=== PATIENT | male | born 1970 | race Caucasian/White ===

== ENCOUNTER 2020-08-14 10:48 | Emergency (ER) | payer OTHER ==
[2020-08-14 11:01] VITALS: TEMP 97.9
[2020-08-14] MEDS ORDERED: HYDROmorphone 1 MG/ML 1 ML SYRINGE IVP STA ×3 (11:23→13:12)
--- NOTE | 2020-08-14 11:30 | ED ---
Fall HPI - General Chief Complaint: Fall Stated Complaint: Fall, L Leg Injury Time Seen by Provider: 08/14/20 11:10 Source: EMS, RN notes reviewed Mode of arrival: EMS - History of Present Illness Initial Comments: patient is a 50-year-old male that presents to emergency department status post fall while trying to get in the shower and hitting his head and landing on his new stump (left leg). He notes that he forgot in the shower he had use the bathroom he tried grabbing a towel rack when it broke off the wall resulting in falling hitting his head and landing on a stump. She did report that he didn't lose consciousness but doesn't remember feels only for a second or minute. He noted that most of the fall landed on his left leg which he recently got a BKA on. He stated that his pain was about a 9 out of 10 constant with no relief even after 50 g of fentanyl in the ambulance. he does take Plavix at home for anticoagulation therapy. He denied any headache chest pain shortness of breath nausea vomiting diarrhea constipation fever fatigue chills decreased range of motion sensation or strength in any extremity. - Related Data Home Medications Medication Instructions Recorded Confirmed Clopidogrel [Plavix] 75 mg PO DAILY 08/14/20 08/14/20 Furosemide [Lasix] 80 mg PO BID 08/14/20 08/14/20 Gabapentin [Neurontin] 300 mg PO TID 08/14/20 08/14/20 Insulin Glargine [Lantus] 18 unit SQ DAILY 08/14/20 08/14/20 Meloxicam [Mobic] 7.5 mg PO DAILY 08/14/20 08/14/20 carvediloL [Coreg] 3.125 mg PO BID 08/14/20 08/14/20 lisinopriL [Zestril] 2.5 mg PO DAILY 08/14/20 08/14/20 metFORMIN HCL 1,000 mg PO DAILY 08/14/20 08/14/20 oxyCODONE HCL [Roxicodone] 5 mg PO Q6H PRN 08/14/20 08/14/20 Previous Rx's Medication Instructions Recorded HYDROcodone/APAP 5-325MG [Edwards 1 tab PO Q6HR PRN 7 Days #28 tab 08/14/20 5-325] Allergies Allergy/AdvReac Type Severity Reaction Status Date / Time No Known Allergies Allergy Verified 08/14/20 11:39 Review of Systems ROS Statement: Those systems with pertinent positive or pertinent negative responses have been documented in the HPI. ROS Other: All systems not noted in ROS Statement are negative. Past Medical History Past Medical History: Heart Failure, COPD, CVA/TIA, Diabetes Mellitus, Hyperten leo, Myocardial Infarction ([place]) History of Any Multi-Drug Resistant Organisms: None Reported Past Surgical History: Coronary Bypass/CABG, Heart Catheterization With Stent, Orthopedic Surgery, Pacemaker Past Psychological History: No Psychological Hx Reported Smoking Status: Current every day smoker Past Alcohol Use History: None Reported Past Drug Use History: None Reported General Exam Limitations: no limitations General appearance: alert, in no apparent distress Head exam: Present: atraumatic, normocephalic, normal inspection Eye exam: Present: normal appearance, PERRL, EOMI. Absent: scleral icterus, conjunctival injection, periorbital swelling ENT exam: Present: normal exam, mucous membranes moist Neck exam: Present: normal inspection. Absent: tenderness, meningismus, lymphadenopathy Respiratory exam: Present: normal lung sounds bilaterally. Absent: respiratory distress, wheezes, rales, rhonchi, stridor Cardiovascular Exam: Present: regular rate, normal rhythm, normal heart sounds. Absent: systolic murmur, diastolic murmur, rubs, gallop, clicks GI/Abdominal exam: Present: soft, normal bowel sounds. Absent: distended, tenderness, guarding, rebound, rigid Extremities exam: Present: normal inspection, full ROM, normal capillary refill, other (left BKA, lonny intact wound intact with no signs or symptoms of infection or dehiscence). Absent: tenderness, pedal edema, joint swelling, calf tenderness Neurological exam: Present: alert, oriented X3, CN II-XII intact Expanded Speech: Present: fluid speech Cranial nerves: EOM's Intact: Normal, Tongue Deviation: Normal, Nystagmus: Normal, Facial Sensation: Normal Cerebellar function: Finger to Nose: Normal Sensory exam: Upper Extremity Light Touch: Normal, Lower Extremity Light Touch: Normal Motor strength exam: RUE: 5, LUE: 5, RLE: 5, LLE: 5 Eye Response: (4) open spontaneously Motor Response: (6) obeys commands Verbal Response: (5) oriented Psychiatric exam: Present: normal affect, normal mood Skin exam: Present: warm, dry, intact, normal color, other (left BKA incision is clean, no signs or symptoms of infection, lonny intact, no dehiscence). Absent: rash Course Vital Signs 08/14/20 08/14/20 10:51 11:01 Temperature 97.9 F Pulse Rate 103 H 102 H Respiratory 18 16 Rate Blood Pressure 142/99 145/84 O2 Sat by Pulse 99 100 Oximetry Medical Decision Making - Medical Decision Making 50-year-old male status post fall with head injury and loss of consciousness and stump pain. Labs,x-ray of left knee and stump, CT of brain without contrast, 1 mg of Dilaudid ordered. Sodium: 124, potassium 5.9, chloride 92, BUN 44 - Lab Data Result diagrams: 08/14/20 11:34 08/14/20 11:34 Lab Results 08/14/20 08/14/20 08/14/20 Range/Units 11:34 11:34 11:34 WBC 6.5 (3.8-10.6) k/uL RBC 4.37 (4.30-5.90) m/uL Hgb 12.9 L (13.0-17.5) gm/dL Hct 36.8 L (39.0-53.0) % MCV 84.2 (80.0-100.0) fL MCH 29.6 (25.0-35.0) pg MCHC 35.2 (31.0-37.0) g/dL RDW 14.9 (11.5-15.5) % Plt Count 208 (150-450) k/uL MPV 8.0 Neutrophils % 61 % Lymphocytes % 23 % Monocytes % 8 % Eosinophils % 6 % Basophils % 1 % Neutrophils # 4.0 (1.3-7.7) k/uL Lymphocytes # 1.5 (1.0-4.8) k/uL Monocytes # 0.5 (0-1.0) k/uL Eosinophils # 0.4 (0-0.7) k/uL Basophils # 0.1 (0-0.2) k/uL PT 10.6 (9.0-12.0) sec INR 1.0 (<1.2) APTT 22.0 (22.0-30.0) sec Sodium 124 L (137-145) mmol/L Potassium 5.9 H (3.5-5.1) mmol/L Chloride 92 L (98-107) mmol/L Carbon Dioxide 24 (22-30) mmol/L Anion Gap 8 mmol/L BUN 44 H (9-20) mg/dL Creatinine 0.96 (0.66-1.25) mg/dL Est GFR (CKD-EPI)AfAm >90 (>60 ml/min/1.73 sqM) Est GFR (CKD-EPI)NonAf >90 (>60 ml/min/1.73 sqM) Glucose 224 H (74-99) mg/dL Calcium 9.2 (8.4-10.2) mg/dL Total Bilirubin 0.8 (0.2-1.3) mg/dL AST 27 (17-59) U/L ALT 15 (4-49) U/L Alkaline Phosphatase 74 (38-126) U/L Total Protein 7.5 (6.3-8.2) g/dL Albumin 4.0 (3.5-5.0) g/dL - Radiology Data Radiology results: report reviewed, image reviewed Brain CT: Nonspecific white matter demyelination, consider chronic small vessel ischemic changes, brain MRI may be of benefit. Possibly remote infarct involving the right cerebral hemisphere. Left knee/stump x-ray: No acute fracture dislocation small amount of fluid in the suprapatellar bursa. Disposition Clinical Impression: Fall, Loss of consciousness, History of left below knee amputation Disposition: HOME SELF-CARE Instructions (If sedation given, give patient instructions): Fall Prevention (ED) Additional Instructions: Please return to the Emergency Department if symptoms worsen or any other concerns. Establish primary care as soon as possible. Labs redrawn in 1 week. Take pain medication as prescribed. Prescriptions: HYDROcodone/APAP 5-325MG [Edwards 5-325] 1 tab PO Q6HR PRN 7 Days #28 tab PRN Reason: Pain Is patient prescribed a controlled substance at d/c from ED?: Yes When asked, does pt state using other controlled substances?: No If prescribed controlled substance>3 days was MAPS reviewed?: Yes If opioid is for acute pain is fill amount 7 days or less?: Yes If Rx opioid, was Start Talking consent form obtained?: Yes Referrals: None,Stated [Primary Care Provider] - 1-2 days Time of Disposition: 13:02
[2020-08-14 11:50] LABS: Basophils # (A) 0.1 k/uL (0-0.2); Basophils % (A) 1 %; Eosinophils # (A) 0.4 k/uL (0-0.7); Eosinophils % (A) 6 %; HCT 36.8 % (39.0-53.0); HGB 12.9 gm/dL (13.0-17.5); Lymphocytes # (A) 1.5 k/uL (1.0-4.8); Lymphocytes % (A) 23 %; MCH 29.6 pg (25.0-35.0); MCHC 35.2 g/dL (31.0-37.0); MCV 84.2 fL (80.0-100.0); Monocytes # (A) 0.5 k/uL (0-1.0); Monocytes % (A) 8 %; Neutrophils % (A) 61 %; Platelet Count 208 k/uL (150-450); RBC 4.37 m/uL (4.30-5.90); RDW 14.9 % (11.5-15.5); WBC 6.5 k/uL (3.8-10.6)
[2020-08-14 12:00] LABS: ALT 15 U/L (4-49); AST 27 U/L (17-59); African American GFR (CKD) >90 (>60 ml/min/1.73 sqM); Alkaline Phosphatase 74 U/L (38-126); Anion Gap 8 mmol/L; Blood Urea Nitrogen 44 mg/dL (9-20); Calcium 9.2 mg/dL (8.4-10.2); Carbon Dioxide 24 mmol/L (22-30); Chloride 92 mmol/L (98-107); Glucose 224 mg/dL (74-99); Non-African American GFR(CKD) >90 (>60 ml/min/1.73 sqM); Sodium 124 mmol/L (137-145); Total Bilirubin 0.8 mg/dL (0.2-1.3); Total Protein 7.5 g/dL (6.3-8.2)
[2020-08-14 12:06] LABS: Prothrombin Time 10.6 sec (9.0-12.0)
--- NOTE | 2020-08-14 12:11 | CT ---
EXAMINATION TYPE: CT brain wo con DATE OF EXAM: 08/14/2020 COMPARISON: None HISTORY: Fall, possibly passed out altered mental status CT DLP: 1084.4 mGycm Automated exposure control for dose reduction was used. Helical imaging through the brain. FINDINGS: There are cerebral vascular calcifications present. There is a wedge-shaped area of low-attenuation i n the right cerebellar hemisphere which could possibly represent some encephalomalacia, axial image # 23. There is periventricular white matter low-attenuation present. Cortical atrophy is likely age-rel ated. There is no hemorrhage or hydrocephalus. Calvarium is intact. Paranasal sinuses and mastoid air cells as visualized are normal. 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 There is some artifact on the exam. IMPRESSION: NONSPECIFIC WHITE MATTER DEMYELINATION, CONSIDER CHRONIC SMALL VESSEL ISCHEMIC CHANGES, BRAIN MRI MAY BE OF BENEFIT. POSSIBLY REMOTE INFARCT INVOLVING THE RIGHT CEREBELLAR HEMISPHERE.
--- NOTE | 2020-08-14 12:11 | XR ---
EXAMINATION TYPE: XR knee complete LT DATE OF EXAM: 08/14/2020 COMPARISON: NONE HISTORY: Pain TECHNIQUE: Three views are submitted. FINDINGS: Joint spaces are preserved. Osseous structures are intact. No acute fracture seen. Vascular stent is noted. Mild narrowing medial compartment knee joint. There are surgical lonny and clips and part ial amputation of the tibia and fibula. Small amount of fluid in the suprapatellar bursa. Spurring al aguila the upper margin of the patella. IMPRESSION: 1. No acute fracture or dislocation. 2. Small amount of fluid in the suprapatellar bursa
[2020-08-14 12:15] LABS: Potassium 5.9 mmol/L (3.5-5.1)
[2020-08-14] MEDS ORDERED: SODIUM CHLORIDE 0.9% 1,000 ML IV STA (12:17)
[2020-08-14 13:28] VITALS: BP 136/89; PULSE 87; RESP 18
== END 2020-08-14 13:27 | disposition home or self-care (01) ==
LOC: EC 10:48
DX: R55 Syncope and collapse (principal); Z89.512 Acquired absence of left leg below knee; I11.0 Hypertensive heart disease with heart failure; I50.9 Heart failure, unspecified; E11.9 Type 2 diabetes mellitus without complications; F17.200 Nicotine dependence, unspecified, uncomplicated; J44.9 Chronic obstructive pulmonary disease, unspecified; I25.2 Old myocardial infarction; Z79.02 Long term (current) use of antithrombotics/antiplatelets; Z79.1 Long term (current) use of non-steroidal anti-inflammatories (NSAID); Z79.4 Long term (current) use of insulin; Z79.899 Other long term (current) drug therapy; Z86.73 Personal history of transient ischemic attack (TIA), and cerebral infarction without residual deficits; W22.01XA Walked into wall, initial encounter
CPT/HCPCS: 36415; 80053; 85025; 85610; 85730; 73562; 70450; 99284; 96374; 96376; 96361; J1170

== ENCOUNTER 2021-02-21 17:46 | Inpatient (IN) | payer OTHER ==
[2021-02-21] MEDS ORDERED: VERAPAMIL 2.5 MG/ML 2 ML AMP ONE (18:04)
[2021-02-21] MEDS ORDERED: LIDOCAINE 1% INJ 10MG/ML (20 ML MDV) ONE (18:05)
[2021-02-21] MEDS ORDERED: HEPARIN SODIUM 1,000 UN/ML (10ML VL) ONE (18:05)
[2021-02-21] MEDS ORDERED: fentaNYL (PF) 50 MCG/ML 2 ML AMP ONE (18:05)
[2021-02-21] MEDS ORDERED: IV FLUID CONTINUATION 950 ML IV ONE (18:48)
[2021-02-21] MEDS ORDERED: NITROGLYCERIN D5W PMX IV ONE ×2 (18:48)
[2021-02-21] MEDS ORDERED: FLUID CONTINUATION IV ONE ×2 (18:48)
[2021-02-21] MEDS ORDERED: ASPIRIN 325 MG TAB ONE (19:10)
[2021-02-21] MEDS ORDERED: ASPIRIN 325 MG TAB PO ONE (19:12)
[2021-02-21] MEDS ORDERED: LIDOCAINE 1% INJ 10MG/ML (20 ML MDV) SQ ONE (19:19)
[2021-02-21] MEDS: MIDAZOLAM 2 MG/2 ML VIAL IV ONE ×2 (19:20→19:34)
[2021-02-21] MEDS: fentaNYL (PF) 50 MCG/ML 2 ML AMP IV ONE ×2 (19:20→19:34)
[2021-02-21] MEDS ORDERED: CLOPIDOGREL 75 MG TAB ONE (19:26)
[2021-02-21] MEDS ORDERED: HEPARIN SODIUM 1,000 UN/ML (10ML VL) IV ONE (19:33)
[2021-02-21] MEDS ORDERED: CLOPIDOGREL 75 MG TAB PO ONE (19:40)
[2021-02-21] MEDS ORDERED: IOPAMIDOL-370 125ML BTL INJ ONE (19:46)
[2021-02-21] MEDS ORDERED: IOPAMIDOL-370 100ML BTL INJ ONE (20:25)
[2021-02-21] MEDS ORDERED: RX INFO: IV CONTRAST WAS GIVEN 1 EACH MISC MISCELLANE PRN (20:38)
--- NOTE | 2021-02-21 20:38 | P.CRDCN ---
History of Present Illness History of present illness: HISTORY OF PRESENTING ILLNESS This is a pleasant 51-year-old male with a history of hypertension, coronary artery disease status post CABG in 2016 with 4 bypass, ischemic cardiomyopathy status post AICD, hyperlipidemia, PVD with recent peripheral stenting, diabetes with polyneuropathy, status post amputation. Patient presents with chest pressure which has been going on off and on for last 2 days as well as some associated shortness breath. Patient was found to have non-STEMI at [facility] with initial troponin 2.3. Patient did have ongoing chest pain and therefore he was transferred over to [facility] for heart catheterization. He has had recent workup for nonhealing ulcers and underwent amputations. He denies any recent fevers, chills, cough. He has been on aspirin and Plavix at home however did not take Plavix yet today is he normally takes it at night. REVIEW OF SYSTEMS At the time of my exam: CONSTITUTIONAL: Denies fever or chills. CARDIOVASCULAR: +chest pain, no shortness of breath, orthopnea, PND or palpitations. RESPIRATORY: Denies cough. GASTROINTESTINAL: Denies abdominal pain, diarrhea, constipation, nausea or vomiting. MUSCULOSKELETAL: Denies myalgias. NEUROLOGIC: Denies numbness, tingling or weakness. ENDOCRINE: Denies fatigue, weight change, polydipsia or polyurina. GENITOURINARY: Denies burning, hematuria or urgency with micturation. HEMATOLOGIC: Denies history of anemia or bleeding. PHYSICAL EXAMINATION Vital signs reviewed. CONSTITUTIONAL: No apparent distress. HEENT: Head is normocephalic. Pupils are equal, round. Sclerae anicteric. Mucous membranes of the mouth are moist. No JVD. No carotid bruit. CHEST EXAMINATION: Lungs are clear to auscultation. No chest wall tenderness is noted on palpation or with deep breathing. HEART EXAMINATION: Regular rate and rhythm. S1, S2 heard. No murmurs, gallops or rub. ABDOMEN: Soft, nontender. Positive bowel sounds. EXTREMITIES: +lower extremity amputation NEUROLOGIC EXAMINATION: Patient is awake, alert and oriented x3. ASSESSMENT 1. Non-STEMI 2. Ischemic cardio myopathy status post AICD 3. PAD status post peripheral stenting 4. Nonhealing ulcers, status post amputation 5. Diabetes mellitus 6. Hypertension 7. Hyperlipidemia PLAN Patient with ongoing chest pain despite nitroglycerin and heparin given at [facility]. Given non-STEMI and prior coronary artery disease risks and benefits of heart catheterization were discussed and patient is agreeable. We will proceed with heart catheterization. Continue with dual antiplatelets. Check 2-D echo. Further recommendations to follow. Past Medical History Past Medical History: Heart Failure, COPD, CVA/TIA, Diabetes Mellitus, Hypertension, Myocardial Infarction ([place]) History of Any Multi-Drug Resistant Organisms: None Reported Past Surgical History: Coronary Bypass/CABG, Heart Catheterization With Stent, Orthopedic Surgery, Pacemaker Past Psychological History: No Psychological Hx Reported Smoking Status: Current every day smoker Past Alcohol Use History: None Reported Past Drug Use History: None Reported Medications and Allergies Home Medications Medication Instructions Recorded Confirmed Type Clopidogrel [Plavix] 75 mg PO DAILY 08/14/20 02/21/21 History Gabapentin [Neurontin] 300 mg PO TID 08/14/20 02/21/21 History carvediloL [Coreg] 3.125 mg PO BID-W/MEALS 08/14/20 02/21/21 History lisinopriL [Zestril] 2.5 mg PO DAILY 08/14/20 02/21/21 History metFORMIN HCL [Glucophage] 1,000 mg PO W/SUPPER 08/14/20 02/21/21 History Insulin Glargine,Hum.rec.anlog 24 unit SQ HS 02/21/21 02/21/21 History [Lantus Solostar Pen] oxyCODONE HCL/ACETAMINOPHEN 1 tab PO Q6HR PRN 02/21/21 02/21/21 History [Percocet 10-325 mg] Allergies Allergy/AdvReac Type Severity Reaction Status Date / Time No Known Allergies Allergy Verified 02/21/21 19:40 Physical Exam Vitals: Intake and Output 02/21/21 02/21/21 02/21/21 06:59 14:59 22:59 Intake Total 303 Balance 303 Intake: IV 303 Other: Weight 82 kg Results Intake and Output 02/21/21 02/21/21 02/21/21 06:59 14:59 22:59 Intake Total 303 Balance 303 Intake: IV 303 Other: Weight 82 kg Patient Weight 02/22/21 06:59 Weight 82 kg
--- NOTE | 2021-02-21 20:53 | P.CARDCATH ---
Description of Procedure: PROCEDURES PERFORMED: Left heart catheterization, bilateral coronary angiography, OSORIO to LAD and SVG to diagonal angiography INDICATION: Non-STEMI HISTORY: Patient is pleasant 51-year-old male with history of diabetes mellitus type 2, hypertension, hyperlipidemia, PVD status post peripheral stenting, coronary artery disease status post CABG 4 with reported only 2 bypass grafts remaining who presented with chest pain and was found to have non-STEMI with ongoing chest pain. Therefore heart catheterization was recommended. CONSENT:I have discussed the risks, benefits and alternative therapies for the above-mentioned procedure and for both sedation/analgesia as well as necessary blood product administration, if indicated, as they pertain to this patient. The patient has indicated understanding and acceptance of the risks and procedures discussed. PROCEDURE: After the risks, benefits and alternatives of the above mentioned procedure explained in detail with the patient, informed consent was obtained. Patient was taken to the catheterization lab and prepped and draped in usual fashion. 1% lidocaine was used to anesthetize the left radial artery. A 6- Colombian sheath was placed in the left radial artery using modified Seldinger technique. Left coronary angiography was difficult to engage however noted to be severe disease and therefore subselective angiography was performed with a FL 4.5 catheter. Right coronary angiography was performed with a 5-Colombian JR4 catheter in various views. A 5-Colombian FR4 catheter was inserted into the left ventricle and pressure measurements were obtained. SVG to diagonal angiography was performed with the FL4 which happened to engage in it. Initially there appeared to be another graft open however after further imaging noted that the 3rd graft was closed. Due to contrast threshold no further imaging was performed. The left radial sheath was removed and a TR band was placed with hemostasis achieved. The patient tolerated the procedure well. Patient was transported back to the post catheterization holding area in stable condition. Conscious Sedation: Patient was monitored under the direct supervision of vision of myself for conscious sedation using Versed and fentanyl HEMODYNAMICS: Ao: 132/76 LV: 133/10, LVEDP 23 SELECTIVE CORONARY ARTERIOGRAPHY: LEFT MAIN: The left main is a large caliber and is not fully imaged however appears to have mild 30% stenosis, cannot exclude ostial stenosis. LEFT ANTERIOR DESCENDING CORONARY ARTERY: LAD is a large caliber vessel which has 100% mid LAD stenosis. LEFT CIRCUMFLEX CORONARY ARTERY: Left circumflex is a moderate caliber vessel and appears to be 100% occluded proximally. RIGHT CORONARY ARTERY: The right coronary artery is a small to moderate caliber vessel which gives off a PDA and PLV branch and is the dominant vessel. There is diffuse mild to moderate 20-50% stenosis throughout the RCA as well as the acute marginal branch. There appear to be small collaterals from right to left to the OM territory. OSORIO to LAD: OSORIO to LAD is widely patent however there appears to be a 70% stenosis at the site of the anastamosis. Distal to the anastamosis there is a 70-80% tubular stenosis. Jump SVG to diagonal then to OM: The SVG to diagonal is widely patent however the SVG portion to the OM is occluded. The diagonal backfills the mid LAD and a modest septal branch. SVG to (assumed RCA or OM): There is a 2nd graft marker noted which is 100% occluded. FINAL IMPRESSION: 1. CAD as described above including left main 30% stenosis, mid LAD 100%, circumflex 100%, SVG to OM 100%, SVG to RCA. Patent SVG to diagonal as well as patent OSORIO to LAD however additional OSORIO to LAD anastamosis 70% stenosis and more distal LAD 70-80% stenosis after the OSORIO touchdown. 2. Elevated left sided filling pressures PLAN: 1. Aggressive risk factor modification per most recent ACC/AHA guidelines. 2. Continue dual antiplatelets for 12 months. 3. May consider PCI of OSORIO to LAD or iFR of RCA if has continued angina.
[2021-02-21 21:09] LABS: Glucose,Whole Blood 166 mg/dL (75-99)
[2021-02-21] MEDS: GABAPENTIN 300 MG CAP PO SCH (23:56)
[2021-02-21] MEDS: TEMAZEPAM 15 MG CAP PO PRN (23:56)
[2021-02-22 05:49] LABS: Glucose,Whole Blood 255 mg/dL (75-99)
[2021-02-22] MEDS: carvediloL 3.125 MG TAB PO SCH ×2 (06:42→17:13)
[2021-02-22] MEDS ORDERED: INSULIN ASPART (NovoLOG) 100 UNIT/ML VIAL SQ SCH (07:30)
[2021-02-22] MEDS: CLOPIDOGREL 75 MG TAB PO SCH (09:27)
[2021-02-22] MEDS: GABAPENTIN 300 MG CAP PO SCH ×3 (09:27→23:04)
[2021-02-22 11:35] LABS: Glucose,Whole Blood 154 mg/dL (75-99)
[2021-02-22] MEDS: INSULIN ASPART (NovoLOG) 100 UNIT/ML VIAL SQ SCH ×2 (11:55→17:12)
[2021-02-22 12:14] LABS: Basophils % (A) 0 %; Eosinophils # (A) 0.1 k/uL (0-0.7); Eosinophils % (A) 1 %; HCT 34.9 % (39.0-53.0); HGB 11.4 gm/dL (13.0-17.5); Lymphocytes # (A) 1.3 k/uL (1.0-4.8); Lymphocytes % (A) 16 %; MCH 29.8 pg (25.0-35.0); MCHC 32.8 g/dL (31.0-37.0); MCV 90.8 fL (80.0-100.0); Mean Platelet Volume 8.3; Monocytes # (A) 0.5 k/uL (0-1.0); Monocytes % (A) 6 %; Neutrophils # (A) 6.1 k/uL (1.3-7.7); Neutrophils % (A) 75 %; Platelet Count 183 k/uL (150-450); RBC 3.84 m/uL (4.30-5.90); RDW 15.1 % (11.5-15.5); WBC 8.1 k/uL (3.8-10.6)
--- NOTE | 2021-02-22 12:18 | P.HPIM ---
History of Present Illness H&P Date: 02/22/21 HISTORY OF PRESENT ILLNESS: Mr. Mcintosh is a 51-year-old male one of my patient with a previous medical history significant for hypertension and hypertensive cardiovascular disease, diabetes mellitus type 2, for the last 3 years with diabetic polyneuropathy, coronary artery disease status post coronary artery bypass graft for 4 vessels back in 2016 with OSORIO to LAD, jump SVG graft to the diagonal branch and obtuse marginal branch and SVG graft to the RCA with ischemic cardiomyopathy status p ost intensity mentation, hyperlipidemia, severe PAD, status post left below-knee amputation, history of CVA with left-sided weakness that has resolved completely, degenerative disc disease of the cervical spine status post ACDF of C5 and C7. 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 Mauro the patient over there and underwent left heart catheterization from the left arm that showed OSORIO to LAD: OSORIO to LAD is widely patent however there appears to be a 70% stenosis at the site of the anastamosis. Distal to the anastamosis there is a 70-80% tubular stenosis. Jump SVG to diagonal then to OM: The SVG to diagonal is widely patent however the SVG portion to the OM is occluded. The diagonal backfills the mid LAD and a modest septal branch. SVG to (assumed RCA or OM): There is a 2nd graft marker noted which is 100% occluded, he was recommended for the patient to go on aggressive medical therapy with aspirin 81 mg once every day, Plavix 75 mg every day, statin and revisit again if continue to have a significant angina despite aggressive medical management. REVIEW OF SYSTEMS: Constitutional: No documented fever, no chills, no night sweats. No weight change. No weakness, fatigue or lethargy. No daytime sleepiness. EENT: No headache. No blurred vision or double vision, no loss of vision. No loss of Hearing, no ringing in the ears, no dizziness. No nasal drainage or congestion. No epistaxis. No sore throat. Lungs: positive for shortness of breath, no cough, no sputum production. No wheezing. Reports dyspnea with activity. Cardiovascular: positive for chest pain, no lower extremity edema. No palpitations. No paroxysmal nocturnal dyspnea. No orthopnea. No lightheadedness or dizziness. No syncopal episodes. Abdominal: Reports abdominal pain. No nausea, vomiting. No diarrhea. No constipation. No bloody or tarry stools reports loss of appetite. Genitourinary: No dysuria, increased frequency, urgency. No urinary retention. Musculoskeletal: No myalgias. No muscle weakness, positive for gait dysfunction, no frequent falls. positive for back pain. No neck pain. Integumentary: No wounds, no lesions. No rash or pruritus. No unusual bruising. No change in hair or nails. Neurologic: No aphasia. No facial droop. No change in mentation. No head injury. No headache. No paralysis. No paresthesia. Psychiatric: No depression. No anxiety. No mood swings. Endocrine: No abnormal blood sugars. No weight change. PAST MEDICAL HISTORY: CAD post CABG 4 with OSORIO to LAD, jump SVG to diagonal and obtuse marginal, SVG to RCA, 2016. Ischemic cardiomyopathy status post ICD. Hypertension and hypertensive cardiovascular disease. Diabetes mellitus type 2. Diabetic polyneuropathy. CVA. Severe PAD post left below-knee amputation History of E. coli necrotizing fasciitis of the left groin area. PAST SURGICAL HISTORY: Below-knee amputation CABG 4 2016 AICD. ACDF C5 C7 Skin graft to the left garzon before the below-knee amputation. Left hip infection post multiple surgical intervention due to necrotizing fasciitis. Left heart catheterization 2019 Left heart catheterization in 2020. 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 FAMILY HISTORY: Father at age 35 from liver cirrhosis as she was an alcoholic father at age 76 from CAD post permanent pacemaker placement patient has one brother and he has one sister he has 2 sons and 1 daughter no major medical problems PHYSICAL EXAMINATION: General: 51-year-old male laying down in bed in no apparent distress. HEENT: Head is atraumatic, normocephalic, pupils were equal round reactive to light and recommendation, extraocular muscle movement were intact, sclera nonicteric, conjunctivae were pale, mucous membranes of the mouth are somewhat dry. Neck: Supple, no JVP, decreased carotid upstroke bilaterally, no lymphadenopathy. Chest: Decreased breath sounds at the bases, few rhonchi, no expiratory wheezes, no chest wall tenderness, no intercostal retractions. Heart: First heart sound is normal, second heart sounds normal there is RAJWINDER 2/6 located at the left sternal border, AICD. Abdomen: Soft, nontender, nondistended, positive bowel sounds, no hepatosplenomegaly. Extremities: There is left below knee amputation stump, right lower extremity with decreased DP +1 and posterior tibialis could not be palpated. Neurologic examination: Patient is awake alert and oriented X3, cranial nerves II-12 appear grossly intact, muscle power were 5 out of 5 in upper extremities and 4 out of 5 in right lower extremity. ASSESSMENT AND PLAN: 1. Non-ST elevation AL status post left heart catheterization that was done yesterday by Dr. Mauro with patent OSORIO to LAD with some 70% stenosis, and the jump SVG graft to the diagonal branch was opened but the one to the obtuse marginal branch was closed and closure of the SVG to RCA, he was recommended to continue maximum medical therapy with aspirin 81 mg every day, Plavix 75 mg once every day, continue with Crestor 20 mg orally once every day, keep LDL closer 55-70 if the patient continues to have unstable angina he would have a different evaluation with FFR for possible PCI of the LAD in the area where it has 70% stenosis. 2. Acute kidney injury due to decreased effective blood flow to the kidneys. Monitor the patient CMP today, keep IV fluids at 50 mL an hour. 3. Ischemic cardiomyopathy. Hold the patient frusemide for now continue patient on Coreg 3.125 mg orally twice every day, patient could not tolerate lisinopril 2.5 mg once every day due to significant hypotension patient could not tolerate Farxiga due to prior history of necrotizing fasciitis as well as hypotension with hypoglycemia. 4. Diabetes mellitus type 2 insulin requiring. Continue Lantus 24 units at bedtime along with the sliding scale insulin. Patient was taken off Farxiga due to hypotension and severe hypoglycemia. 5. Severe PAD status post left below-knee amputation with current disease in the right lower extremity has been under the care of vascular surgery. Continue aspirin 81 mg once every day, Plavix 75 mg once every day, continue with Crestor 20 mg orally once every day. 6. Diabetic polyneuropathy. Continue gabapentin 600 mg orally 3 times every day. 7. Chronic pain syndrome secondary to degenerative disc disease of the cervical spine and lumbar spine. Currently on Percocet 10/325 mg one tablet orally every 6 hours as needed. 8. Insomnia. Patient has been started on Restoril 15 mg orally once at bedtime as needed. 9. DVT prophylaxis. Restart the patient on Lovenox 30 mg subcutaneously every 24 hours due to his creatinine clearance. 10. GI prophylaxis. Continue Protonix 40 mg once every day. 11. Admitted to inpatient. Estimated length of stay 2 midnights. 12. Patient is full code. Past Medical History Past Medical History: Heart Failure, COPD, CVA/TIA, Diabetes Mellitus, Hypertension, Myocardial Infarction (AL) Last Myocardial Infarction Date:: 2016 History of Any Multi-Drug Resistant Organisms: None Reported Past Surgical History: Coronary Bypass/CABG, Heart Catheterization With Stent, Orthopedic Surgery, Pacemaker Date of Last Stent Placement:: 2016 Type of Cardiac Device: AICD Device Placement Date:: 2016 Past Psychological History: No Psychological Hx Reported Smoking Status: Current every day smoker Past Alcohol Use History: None Reported Additional Past Alcohol Use History / Comment(s): smokes 0.5 packs a day Past Drug Use History: None Reported Medications and Allergies Home Medications Medication Instructions Recorded Confirmed Type Clopidogrel [Plavix] 75 mg PO DAILY 08/14/20 02/21/21 History Gabapentin [Neurontin] 300 mg PO TID 08/14/20 02/21/21 History carvediloL [Coreg] 3.125 mg PO BID-W/MEALS 08/14/20 02/21/21 History lisinopriL [Zestril] 2.5 mg PO DAILY 08/14/20 02/21/21 History metFORMIN HCL [Glucophage] 1,000 mg PO W/SUPPER 08/14/20 02/21/21 History Insulin Glargine,Hum.rec.anlog 24 unit SQ HS 02/21/21 02/21/21 History [Lantus Solostar Pen] oxyCODONE HCL/ACETAMINOPHEN 1 tab PO Q6HR PRN 02/21/21 02/21/21 History [Percocet 10-325 mg] Allergies Allergy/AdvReac Type Severity Reaction Status Date / Time No Known Allergies Allergy Verified 02/21/21 19:40 Physical Exam Vitals: Vital Signs Temp Pulse Resp BP Pulse Ox 02/22/21 08:00 98.2 F 89 18 116/56 95 02/22/21 04:20 98.5 F 95 18 125/77 95 02/22/21 00:23 95 18 103/62 96 02/21/21 23:23 98.6 F 85 18 109/70 96 02/21/21 22:23 87 18 118/75 96 02/21/21 21:23 89 17 104/68 94 L 02/21/21 21:08 86 17 112/72 96 02/21/21 20:53 18 115/67 96 02/21/21 20:47 98 F 86 18 115/67 96 Intake and Output 02/21/21 02/22/21 02/22/21 22:59 06:59 14:59 Intake Total 303 Balance 303 Intake: IV 303 Other: Voiding Method Toilet Toilet Toilet # Voids 1 Weight 82 kg 79.557 kg Results Labs: Abnormal Lab Results - Last 24 Hours (Table) 02/21/21 02/22/21 Range/Units 21:07 05:46 POC Glucose (mg/dL) 166 H 255 H (75-99) mg/dL Thrombosis Risk Factor Assmnt - Choose All That Apply Each Factor Represents 1 point: Age 41-60 years, Obesity (BMI >25) Thrombosis Risk Factor Assessment Total Risk Factor Score: 2 Thrombosis Risk Factor Assessment Level: Low Risk
[2021-02-22 12:24] LABS: ALT 11 U/L (4-49); AST 16 U/L (17-59); African American GFR (CKD) >90 (>60 ml/min/1.73 sqM); Albumin 3.2 g/dL (3.5-5.0); Alkaline Phosphatase 79 U/L (38-126); Anion Gap 6 mmol/L; Blood Urea Nitrogen 20 mg/dL (9-20); Calcium 9.3 mg/dL (8.4-10.2); Carbon Dioxide 23 mmol/L (22-30); Chloride 109 mmol/L (98-107); Glucose 156 mg/dL (74-99); Non-African American GFR(CKD) 87 (>60 ml/min/1.73 sqM); Potassium 4.8 mmol/L (3.5-5.1); Sodium 138 mmol/L (137-145); Total Bilirubin 1.1 mg/dL (0.2-1.3); Total Protein 6.2 g/dL (6.3-8.2)
[2021-02-22] MEDS: oxyCODONE-APAP 10-325MG 1 EACH TAB PO PRN (16:01)
[2021-02-22 16:38] LABS: Glucose,Whole Blood 255 mg/dL (75-99)
[2021-02-22 20:35] LABS: Glucose,Whole Blood 179 mg/dL (75-99)
--- NOTE | 2021-02-22 20:51 | P.PN ---
Subjective HISTORY OF PRESENTING ILLNESS This is a pleasant 51-year-old male with a history of hypertension, coronary artery disease status post CABG in 2016 with 4 bypass, ischemic cardiomyopathy status post AICD, hyperlipidemia, PVD with recent peripheral stenting, diabetes with polyneuropathy, status post amputation. Patient presents with chest pressure which has been going on off and on for last 2 days as well as some associated shortness breath. Patient was found to have non-STEMI at [facility] with initial troponin 2.3. Patient did have ongoing chest pain and therefore he was transferred over to [facility] for heart cathet erization. He has had recent workup for nonhealing ulcers and underwent amputations. He denies any recent fevers, chills, cough. He has been on aspirin and Plavix at home however did not take Plavix yet today is he normally takes it at night. 02/22 Patient seen and examined. Patient admits to off and on chest pain but has been improving with pain meds. Patient admits he had been much more active over the last few days as he recently got his prosthetic leg. Denies any shortness breath. Kidney functions remained stable today. He underwent heart catheterization 02/21 with patent OSORIO to LAD however proximally 70% lesion at the anastomosis as well as more distal LAD stenosis and diffuse RCA stenosis and patent SVG to diagonal branch however jump graft down. REVIEW OF SYSTEMS At the time of my exam: CONSTITUTIONAL: Denies fever or chills. CARDIOVASCULAR: +chest pain, no shortness of breath, orthopnea, PND or palpitations. RESPIRATORY: Denies cough. GASTROINTESTINAL: Denies abdominal pain, diarrhea, constipation, nausea or vomiting. MUSCULOSKELETAL: Denies myalgias. NEUROLOGIC: Denies numbness, tingling or weakness. ENDOCRINE: Denies fatigue, weight change, polydipsia or polyurina. GENITOURINARY: Denies burning, hematuria or urgency with micturation. HEMATOLOGIC: Denies history of anemia or bleeding. PHYSICAL EXAMINATION Vital signs reviewed. CONSTITUTIONAL: No apparent distress. HEENT: Head is normocephalic. Pupils are equal, round. Sclerae anicteric. Mucous membranes of the mouth are moist. No JVD. No carotid bruit. CHEST EXAMINATION: Lungs are clear to auscultation. No chest wall tenderness is noted on palpation or with deep breathing. HEART EXAMINATION: Regular rate and rhythm. S1, S2 heard. No murmurs, gallops or rub. ABDOMEN: Soft, nontender. Positive bowel sounds. EXTREMITIES: +lower extremity amputation NEUROLOGIC EXAMINATION: Patient is awake, alert and oriented x3. ASSESSMENT 1. Non-STEMI 2. Ischemic cardio myopathy status post AICD 3. PAD status post peripheral stenting 4. Nonhealing ulcers, status post amputation 5. Diabetes mellitus 6. Hypertension 7. Hyperlipidemia 8. CAD s/p CABG PLAN We will continue to monitor patient's kidney function as he did receive a significant amount of contrast. Patient still having off-and-on chest pain however unclear if his true angina as it mainly is relieved with narcotics. He does not appear drug seeking however. Continue with dual antiplatelets. Discussed possible intervention of OSORIO to LAD, more distal LAD as well as possible iFR of RCA. He admits that he has been more active since getting his prosthesis and has been having issues with angina with exertion as he has been more active. Therefore would be reasonable to proceed with PCI, possibly Tuesday if kidney function remains stable. Check 2D echo. Objective - Vital Signs Vital signs: Vital Signs Temp 98.0 F 02/22/21 15:28 Pulse 87 02/22/21 15:28 Resp 18 02/22/21 15:28 BP 124/73 02/22/21 15:28 Pulse Ox 97 02/22/21 15:28 Intake & Output 02/22/21 02/22/21 02/23/21 06:59 18:59 06:59 Intake Total 2271 Balance 2271 Weight 79.557 kg Intake: Oral 2271 Other: Voiding Method Toilet Toilet # Voids 1 - Labs CBC & Chem 7: 02/22/21 11:44 02/22/21 11:44 Labs: Abnormal Lab Results - Last 24 Hours (Table) 02/21/21 02/22/21 02/22/21 Range/Units 21:07 05:46 11:33 RBC (4.30-5.90) m/uL Hgb (13.0-17.5) gm/dL Hct (39.0-53.0) % Chloride (98-107) mmol/L Glucose (74-99) mg/dL POC Glucose (mg/dL) 166 H 255 H 154 H (75-99) mg/dL AST (17-59) U/L Total Protein (6.3-8.2) g/dL Albumin (3.5-5.0) g/dL 02/22/21 02/22/21 02/22/21 Range/Units 11:44 11:44 16:36 RBC 3.84 L (4.30-5.90) m/uL Hgb 11.4 L (13.0-17.5) gm/dL Hct 34.9 L (39.0-53.0) % Chloride 109 H (98-107) mmol/L Glucose 156 H (74-99) mg/dL POC Glucose (mg/dL) 255 H (75-99) mg/dL AST 16 L (17-59) U/L Total Protein 6.2 L (6.3-8.2) g/dL Albumin 3.2 L (3.5-5.0) g/dL 02/22/21 Range/Units 20:24 RBC (4.30-5.90) m/uL Hgb (13.0-17.5) gm/dL Hct (39.0-53.0) % Chloride (98-107) mmol/L Glucose (74-99) mg/dL POC Glucose (mg/dL) 179 H (75-99) mg/dL AST (17-59) U/L Total Protein (6.3-8.2) g/dL Albumin (3.5-5.0) g/dL
[2021-02-22] MEDS: INSULIN DETEMIR (LEVEMIR) 100 UNIT/ML SYR SQ SCH (21:21)
[2021-02-22] MEDS: TEMAZEPAM 15 MG CAP PO PRN (23:04)
[2021-02-23] MEDS: carvediloL 3.125 MG TAB PO SCH (06:15)
[2021-02-23] MEDS: INSULIN ASPART (NovoLOG) 100 UNIT/ML VIAL SQ SCH ×3 (06:15→17:04)
[2021-02-23] MEDS: PANTOPRAZOLE 40 MG TABLET PO SCH (06:15)
[2021-02-23 06:36] LABS: Glucose,Whole Blood 100 mg/dL (75-99)
[2021-02-23] MEDS ORDERED: ISOSORBIDE MONONITRATE ER 30 MG TAB.ER.24H PO SCH (09:00)
[2021-02-23 09:10] LABS: Basophils % (A) 1 %; Eosinophils # (A) 0.1 k/uL (0-0.7); Eosinophils % (A) 2 %; HCT 33.8 % (39.0-53.0); HGB 11.4 gm/dL (13.0-17.5); Lymphocytes # (A) 1.4 k/uL (1.0-4.8); Lymphocytes % (A) 16 %; MCH 29.8 pg (25.0-35.0); MCHC 33.8 g/dL (31.0-37.0); MCV 88.2 fL (80.0-100.0); Mean Platelet Volume 8.3; Monocytes # (A) 0.5 k/uL (0-1.0); Monocytes % (A) 5 %; Neutrophils # (A) 6.3 k/uL (1.3-7.7); Neutrophils % (A) 75 %; Platelet Count 194 k/uL (150-450); RBC 3.84 m/uL (4.30-5.90); RDW 15.4 % (11.5-15.5); WBC 8.4 k/uL (3.8-10.6)
[2021-02-23] MEDS: CLOPIDOGREL 75 MG TAB PO SCH (09:11)
[2021-02-23] MEDS: ENOXAPARIN 40 MG/0.4 ML SYRINGE SQ SCH (09:11)
[2021-02-23] MEDS: ASPIRIN 81 MG PO SCH (09:11)
[2021-02-23] MEDS: GABAPENTIN 300 MG CAP PO SCH ×3 (09:12→22:08)
[2021-02-23 09:23] LABS: ALT 12 U/L (4-49); AST 18 U/L (17-59); African American GFR (CKD) >90 (>60 ml/min/1.73 sqM); Albumin 3.3 g/dL (3.5-5.0); Alkaline Phosphatase 80 U/L (38-126); Anion Gap 9 mmol/L; Blood Urea Nitrogen 21 mg/dL (9-20); Calcium 9.2 mg/dL (8.4-10.2); Carbon Dioxide 21 mmol/L (22-30); Chloride 105 mmol/L (98-107); Glucose 212 mg/dL (74-99); Non-African American GFR(CKD) 82 (>60 ml/min/1.73 sqM); Potassium 4.9 mmol/L (3.5-5.1); Sodium 135 mmol/L (137-145); Total Bilirubin 1.5 mg/dL (0.2-1.3); Total Protein 6.3 g/dL (6.3-8.2)
[2021-02-23] MEDS ORDERED: carvediloL 3.125 MG TAB PO STA (10:49)
[2021-02-23] MEDS ORDERED: NITROGLYCERIN SL TABS 0.4 MG TAB SUBLINGUAL PRN (11:38)
--- NOTE | 2021-02-23 11:38 | P.PN ---
Subjective HISTORY OF PRESENTING ILLNESS This is a pleasant 51-year-old male with a history of hypertension, coronary artery disease status post CABG in 2016 with 4 bypass, ischemic cardiomyopathy status post AICD, hyperlipidemia, PVD with recent peripheral stenting, diabetes with polyneuropathy, status post amputation. Patient presents with chest pressure which has been going on off and on for last 2 days as well as some associated shortness breath. Patient was found to have non-STEMI at [facility] with initial troponin 2.3. Patient did have ongoing chest pain and therefore he was transferred over to [facility] for heart kalani terization. He has had recent workup for nonhealing ulcers and underwent amputations. He denies any recent fevers, chills, cough. He has been on aspirin and Plavix at home however did not take Plavix yet today is he normally takes it at night. 02/23/2021 Pt seen and examined sitting up in bed in no acute distress. He states he continues to have symptoms of chest pain intermittently described as a heaviness. He denies shortness of breath, dizziness or palpitations. The discomfort does not radiate anywhere. Blood pressure 111/59 heart rate 79 afebrile and maintaining oxygen saturation on room air. Laboratory data reviewed, WBC 8.4, hemoglobin 11.4, platelets 194, sodium 135, potassium 4.9, creatinine 1.04 PHYSICAL EXAMINATION CONSTITUTIONAL: No apparent distress. HEENT: Head is normocephalic. Pupils are equal, round. Sclerae anicteric. Mucous membranes of the mouth are moist. No JVD. No carotid bruit. CHEST EXAMINATION: Lungs are clear to auscultation. No chest wall tenderness is noted on palpation or with deep breathing. HEART EXAMINATION: Regular rate and rhythm. S1, S2 heard. No murmurs, gallops or rub. EXTREMITIES: Left BKA; no swelling in the right lower extremity. ASSESSMENT 1. Non-STEMI 2. Ischemic cardio myopathy status post AICD 3. PAD status post peripheral stenting 4. Nonhealing ulcers, status post amputation 5. Diabetes mellitus 6. Hypertension 7. Hyperlipidemia 8. CAD s/p CABG PLAN Increase beta blockers to 6.25 mg BID. Plan for PCI to the OSORIO-LAD tomorrow with IFR of the RCA as well. I have discussed the risks, benefits and alternative therapies for the above- mentioned procedure and for both sedation/analgesia as well as necessary blood p roduct administration, if indicated, as they pertain to this patient. The patient has indicated understanding and acceptance of the risks and procedures discussed. Questions have been answered appropriately. Interrogate device (DWNLD). Obtain 2D echocardiogram and doppler study to assess cardiac structure and function. Nurse Practitioner note has been reviewed, I agree with a documented findings and plan of care. Patient was seen and examined. Objective - Vital Signs Vital signs: Vital Signs Temp 97.2 F L 02/23/21 04:00 Pulse 86 02/23/21 04:00 Resp 18 02/23/21 04:00 BP 106/56 02/23/21 04:00 Pulse Ox 97 02/23/21 04:00 Intake & Output 02/22/21 02/23/21 02/23/21 18:59 06:59 18:59 Intake Total 2271 Output Total 1100 Balance 2271 -1100 Weight 79.5 kg Intake: Oral 2271 Output: Urine 1100 Other: Voiding Method Toilet Toilet # Voids 1 - Labs CBC & Chem 7: 02/23/21 08:38 02/23/21 08:38 Labs: Abnormal Lab Results - Last 24 Hours (Table) 02/22/21 02/22/21 02/22/21 Range/Units 11:33 11:44 11:44 RBC 3.84 L (4.30-5.90) m/uL Hgb 11.4 L (13.0-17.5) gm/dL Hct 34.9 L (39.0-53.0) % Chloride 109 H (98-107) mmol/L Glucose 156 H (74-99) mg/dL POC Glucose (mg/dL) 154 H (75-99) mg/dL AST 16 L (17-59) U/L Total Protein 6.2 L (6.3-8.2) g/dL Albumin 3.2 L (3.5-5.0) g/dL 02/22/21 02/22/21 02/23/21 Range/Units 16:36 20:24 06:12 RBC (4.30-5.90) m/uL Hgb (13.0-17.5) gm/dL Hct (39.0-53.0) % Chloride (98-107) mmol/L Glucose (74-99) mg/dL POC Glucose (mg/dL) 255 H 179 H 100 H (75-99) mg/dL AST (17-59) U/L Total Protein (6.3-8.2) g/dL Albumin (3.5-5.0) g/dL
[2021-02-23 11:44] LABS: Glucose,Whole Blood 154 mg/dL (75-99)
[2021-02-23] MEDS: oxyCODONE-APAP 10-325MG 1 EACH TAB PO PRN (14:26)
[2021-02-23 16:37] LABS: Glucose,Whole Blood 207 mg/dL (75-99)
[2021-02-23] MEDS: carvediloL 6.25 MG TAB PO SCH (17:04)
[2021-02-23 19:57] LABS: Glucose,Whole Blood 265 mg/dL (75-99)
[2021-02-23] MEDS: INSULIN DETEMIR (LEVEMIR) 100 UNIT/ML SYR SQ SCH (20:16)
[2021-02-23] MEDS: TEMAZEPAM 15 MG CAP PO PRN (22:09)
[2021-02-23] MEDS ORDERED: SODIUM CHLORIDE 0.9% 1,000 ML in EMPTY BAG 1 BAG IV ONE (23:59)
--- NOTE | 2021-02-24 04:47 | P.PN ---
Subjective Progress Note Date: 02/23/21 Progress Note: 02/23/2021 HISTORY OF PRESENT ILLNESS: Mr. Mcintosh is a 51-year-old male one of my patient with a previous medical history significant for hypertension and hypertensive cardiovascular disease, diabetes mellitus type 2, for the last 3 years with diabetic polyneuropathy, coronary artery disease status post coronary artery bypass graft for 4 vessels back in 2016 with OSORIO to LAD, jump SVG graft to the diagonal branch and obtuse marginal branch and SVG graft to the RCA with ischemic cardiomyopathy status post intensity mentation, hyperlipidemia, severe PAD, status post left below- knee amputation, history of CVA with left-sided weakness that has resolved completely, degenerative disc disease of the cervical spine status post ACDF of C5 and C7. Patient presented to the emergency department at [facility] with left-sided chest pain associated with shortness breath that was started 2 days ago prior to the presentation, patient troponin was elevated, his total EKG showed left bundle branch block, BNP was slightly elevated, patient was admitted to the hospital non-ST elevation myocardial infarction he was started on heparin drip and nitroglycerin drip and the patient on the floor developed to have a significant chest pressure, so he was transported to [facility] manager cath lab via EMS, with Dr. Mauro the patient over there and underwent left heart catheterization from the left arm that showed OSORIO to LAD: OSORIO to LAD is widely patent however there appears to be a 70% stenosis at the site of the anastamosis. Distal to the anastamosis there is a 70-80% tubular stenosis. Jump SVG to diagonal then to OM: The SVG to diagonal is widely patent however the SVG portion to the OM is occluded. The diagonal backfills the mid LAD and a modest septal branch. SVG to (assumed RCA or OM): There is a 2nd graft marker noted which is 100% occluded, he was recommended for the patient to go on aggressive medical therapy with aspirin 81 mg once every day, Plavix 75 mg every day, statin and revisit again if continue to have a significant angina despite aggressive medical management. 02/23: Patient is sitting up in bed in acute distress he continues to have in creased chest tightness and he will be going for left heart catherization in [place] from the right wrist and FFR and possible PCI of the natii=ve LAD, he is a bit frustrated with his pain and current condition and he wanted to get out of the hospital as soon as he can, we will continue to monitor his BGM and kidney function and we will continue to follow with cardiology team REVIEW OF SYSTEMS: Constitutional: No documented fever, no chills, no night sweats. No weight change. No weakness, fatigue or lethargy. No daytime sleepiness. HEENT: No headache. No blurred vision or double vision, no loss of vision. No loss of Hearing, no ringing in the ears, no dizziness. No nasal drainage or co ngestion. No epistaxis. No sore throat. Lungs: positive for shortness of breath, no cough, no sputum production. No wheezing. Reports dyspnea with activity. Cardiovascular: positive for chest pain, no lower extremity edema. No palpitations. No paroxysmal nocturnal dyspnea. No orthopnea. No l ightheadedness or dizziness. No syncopal episodes. Abdominal: Reports abdominal pain. No nausea, vomiting. No diarrhea. No constipation. No bloody or tarry stools reports loss of appetite. Genitourinary: No dysuria, increased frequency, urgency. No urinary retention. Musculoskeletal: No myalgias. No muscle weakness, positive for gait dysfunction, no frequent falls. positive for back pain. No neck pain. Integumentary: No wounds, no lesions. No rash or pruritus. No unusual bruising. No change in hair or nails. Neurologic: No aphasia. No facial droop. No change in mentation. No head injury. No headache. No paralysis. No paresthesia. Psychiatric: No depression. No anxiety. No mood swings. Endocrine: No abnormal blood sugars. No weight change. PHYSICAL EXAMINATION: General: 51-year-old male laying down in bed in no apparent distress. HEENT: Head is atraumatic, normocephalic, pupils were equal round reactive to light and recommendation, extraocular muscle movement were intact, sclera nonicteric, conjunctivae were pale, mucous membranes of the mouth are somewhat dry. Neck: Supple, no JVP, decreased carotid upstroke bilaterally, no lymphadenopathy. Chest: Decreased breath sounds at the bases, few rhonchi, no expiratory wheezes, no chest wall tenderness, no intercostal retractions. Heart: First heart sound is normal, second heart sounds normal there is RAJWINDER 2/6 located at the left sternal border, AICD. Abdomen: Soft, nontender, nondistended, positive bowel sounds, no hepatosplenomegaly. Extremities: There is left below knee amputation stump, right lower extremity with decreased DP +1 and posterior tibialis could not be palpated. Neurologic examination: Patient is awake alert and oriented X3, cranial nerves II-12 appear grossly intact, muscle power were 5 out of 5 in upper extremities and 4 out of 5 in right lower extremity. ASSESSMENT AND PLAN: 1. Non-ST elevation [place] status post left heart catheterization that was done by Dr. Mauro with patent OSORIO to LAD with some 70% stenosis, and the jump SVG graft to the diagonal branch was opened but the one to the obtuse marginal branch was closed and closure of the SVG to RCA, he was recommended to continue maximum medical therapy with aspirin 81 mg every day, Plavix 75 mg once every day, continue with Atorvastatin 80 mg orally once every day, keep LDL closer 55-70 . Patient is scheduled for another [facility] with FFR for possible PCI of the LAD in the area where it has 70% stenosis. 2. Acute kidney injury due to decreased effective blood flow to the kidneys. Monitor the patient CMP in Am. 3. Ischemic cardiomyopathy. Hold the patient frusemide for now continue patient on Coreg 6.25 mg orally twice every day, patient could not tolerate lisinopril 2.5 mg once every day due to significant hypotension patient could not tolerate Farxiga due to prior history of necrotizing fasciitis as well as hypotension with hypoglycemia. 4. Diabetes mellitus type 2 insulin requiring. Continue Lantus 24 units at bedtime along with the sliding scale insulin. Patient was taken off Farxiga due to hypotension and severe hypoglycemia. 5. Severe PAD status post left below-knee amputation with current disease in the right lower extremity has been under the care of vascular surgery. Continue aspirin 81 mg once every day, Plavix 75 mg once every day, continue with Atorvastatin 80 mg orally once every day. 6. Diabetic polyneuropathy. Continue gabapentin 600 mg orally 3 times every day. 7. Chronic pain syndrome secondary to degenerative disc disease of the cervical spine and lumbar spine. Currently on Percocet 10/325 mg one tablet orally every 6 hours as needed. 8. Insomnia. Patient has been started on Restoril 15 mg orally once at bedtime as needed. 9. DVT prophylaxis. Restart the patient on heparin drip. 10. GI prophylaxis. Continue Protonix 40 mg once every day. 11. Left heart catherization in AM. Objective - Vital Signs Vital signs: Vital Signs Temp 97.8 F 02/24/21 00:00 Pulse 83 02/24/21 00:00 Resp 18 02/24/21 00:00 BP 137/69 02/24/21 00:00 Pulse Ox 97 02/24/21 00:00 Intake & Output 02/23/21 02/23/21 02/24/21 06:59 18:59 06:59 Intake Total 340 Output Total 1100 1700 Balance -1100 -1360 Weight 79.5 kg Intake: Oral 340 Output: Urine 1100 1700 Other: Voiding Method Toilet Toilet Toilet # Voids 1 - Labs CBC & Chem 7: 02/23/21 08:38 02/23/21 08:38 Labs: Abnormal Lab Results - Last 24 Hours (Table) 02/23/21 02/23/21 02/23/21 Range/Units 06:12 08:38 08:38 RBC 3.84 L (4.30-5.90) m/uL Hgb 11.4 L (13.0-17.5) gm/dL Hct 33.8 L (39.0-53.0) % Sodium 135 L (137-145) mmol/L Carbon Dioxide 21 L (22-30) mmol/L BUN 21 H (9-20) mg/dL Glucose 212 H (74-99) mg/dL POC Glucose (mg/dL) 100 H (75-99) mg/dL Total Bilirubin 1.5 H (0.2-1.3) mg/dL Albumin 3.3 L (3.5-5.0) g/dL 02/23/21 02/23/21 02/23/21 Range/Units 11:41 16:32 19:55 RBC (4.30-5.90) m/uL Hgb (13.0-17.5) gm/dL Hct (39.0-53.0) % Sodium (137-145) mmol/L Carbon Dioxide (22-30) mmol/L BUN (9-20) mg/dL Glucose (74-99) mg/dL POC Glucose (mg/dL) 154 H 207 H 265 H (75-99) mg/dL Total Bilirubin (0.2-1.3) mg/dL Albumin (3.5-5.0) g/dL
[2021-02-24 05:53] LABS: Glucose,Whole Blood 183 mg/dL (75-99)
[2021-02-24] MEDS ORDERED: ASPIRIN 325 MG TAB PO ONE (06:00)
[2021-02-24] MEDS: carvediloL 6.25 MG TAB PO SCH ×2 (06:40→18:57)
[2021-02-24] MEDS: PANTOPRAZOLE 40 MG TABLET PO SCH (06:40)
[2021-02-24] MEDS: INSULIN ASPART (NovoLOG) 100 UNIT/ML VIAL SQ SCH ×3 (06:42→18:44)
[2021-02-24] MEDS ORDERED: HEPARIN SODIUM,PORCINE 2,500 UNIT in SODIUM CHLORIDE 0.9% 250 ML IRRIGATION PRN (07:00)
[2021-02-24] MEDS ORDERED: HEPARIN SODIUM,PORCINE 10,000 UNIT in SODIUM CHLORIDE 0.9% 1,000 ML IRRIGATION PRN (07:00)
[2021-02-24 09:39] LABS: Basophils % (A) 1 %; Eosinophils # (A) 0.1 k/uL (0-0.7); Eosinophils % (A) 2 %; HCT 31.1 % (39.0-53.0); HGB 10.7 gm/dL (13.0-17.5); Lymphocytes # (A) 1.2 k/uL (1.0-4.8); Lymphocytes % (A) 15 %; MCH 30.5 pg (25.0-35.0); MCHC 34.4 g/dL (31.0-37.0); MCV 88.6 fL (80.0-100.0); Mean Platelet Volume 8.1; Monocytes # (A) 0.5 k/uL (0-1.0); Monocytes % (A) 6 %; Neutrophils # (A) 6.1 k/uL (1.3-7.7); Neutrophils % (A) 76 %; Platelet Count 191 k/uL (150-450); RDW 15.7 % (11.5-15.5); WBC 8.1 k/uL (3.8-10.6)
[2021-02-24 09:59] LABS: ALT 12 U/L (4-49); AST 15 U/L (17-59); African American GFR (CKD) >90 (>60 ml/min/1.73 sqM); Albumin 3.2 g/dL (3.5-5.0); Alkaline Phosphatase 78 U/L (38-126); Anion Gap 6 mmol/L; Blood Urea Nitrogen 21 mg/dL (9-20); Calcium 8.9 mg/dL (8.4-10.2); Carbon Dioxide 22 mmol/L (22-30); Chloride 108 mmol/L (98-107); Glucose 127 mg/dL (74-99); Magnesium 1.8 mg/dL (1.6-2.3); Non-African American GFR(CKD) 90 (>60 ml/min/1.73 sqM); Potassium 4.7 mmol/L (3.5-5.1); Sodium 136 mmol/L (137-145); Total Bilirubin 0.9 mg/dL (0.2-1.3); Total Protein 6.1 g/dL (6.3-8.2)
[2021-02-24] MEDS: ATORVASTATIN 80 MG TAB PO ONE ×2 (10:07→10:08)
[2021-02-24] MEDS: ENOXAPARIN 40 MG/0.4 ML SYRINGE SQ SCH (10:08)
[2021-02-24] MEDS: GABAPENTIN 300 MG CAP PO SCH ×3 (10:08→21:03)
[2021-02-24] MEDS: ASPIRIN 81 MG PO SCH (10:08)
[2021-02-24] MEDS: CLOPIDOGREL 75 MG TAB PO SCH (10:08)
--- NOTE | 2021-02-24 10:38 | ECHOF ---
Referral Reason: MEASUREMENTS -------- HEIGHT: 172.7 cm WEIGHT: 79.4 kg BP: 111/59 RVIDd: 3.7 cm (< 3.3) IVSd: 1.1 cm (0.6 - 1.1) LVIDd: 4.6 cm (3.9 - 5.3) LVPWd: 1.2 cm (0.6 - 1.1) IVSs: 1.4 cm LVIDs: 4.0 cm LVPWs: 1.4 cm LAESV Index (A-L): 45.25 ml/m Ao Diam: 2.7 cm (2.0 - 3.7) AV Cusp: 1.7 cm (1.5 - 2.6) LA Diam: 4.0 cm (2.7 - 3.8) MV E David: 1.24 m/s MV DecT: 160 ms MV A David: 0.54 m/s MV E/A Ratio: 2.29 FINDINGS -------- Sinus rhythm. This was a technically difficult study with suboptimal views. The left ventricular size is normal. There is borderline concentric left ventricular hypertrophy. Overall left ventricular systolic function is severely impaired with, an EF between 20 - 25 %. Bas al anterior LV wall motion is akinetic. Mid anterior LV wall motion is akinetic. Mid lateral LV wall motion is akinetic. Mid anteroseptal LV wall motion is akinetic. Apical anterior LV wall motion is akinetic. Apical lateral LV wall motion is akinetic. Apical inferior LV wall motion i s akinetic. Apical septum LV wall motion is akinetic. The right ventricle is mildly enlarged. LA is severely dilated >40 ml/m2 The right atrium was not well visualized. 5.0mg of Lumason was utilized for enhancement of images Interatrial and interventricular septum intact. There is mild aortic valve sclerosis. There is no evidence of aortic regurgitation. There is no e vidence of aortic stenosis. The mitral valve is normal. Crob-we-[id number] mitral regurgitation is present. The tricuspid valve appears structurally normal. Mild tricuspid regurgitation present. Unable to estimate RVSP due to inadequate TR jet spectral doppler profile. Trace/mild (physiologic) pulmonic regurgitation. The aortic root size is normal. IVC Not well visulized. There is no pericardial effusion. CONCLUSIONS -------- 1. This was a technically difficult study with suboptimal views. 2. There is borderline concentric left ventricular hypertrophy. 3. Overall left ventricular systolic function is severely impaired with, an EF between 20 - 25 %. 4. Basal anterior LV wall motion is akinetic. 5. Mid anterior LV wall motion is akinetic. 6. Mid lateral LV wall motion is akinetic. 7. Mid anteroseptal LV wall motion is akinetic. 8. Apical anterior LV wall motion is akinetic. 9. Apical lateral LV wall motion is akinetic. 10. Apical inferior LV wall motion is akinetic. 11. Apical septum LV wall motion is akinetic. 12. The right ventricle is mildly enlarged. 13. LA is severely dilated >40 ml/m2 14. Lono-no-fmmymrxo mitral regurgitation is present. 15. Mild tricuspid regurgitation present. 16. Trace/mild (physiologic) pulmonic regurgitation. SOFTWARE RELEASE MANAGER: Lulú Garza RDCS
[2021-02-24 11:51] LABS: Glucose,Whole Blood 166 mg/dL (75-99)
--- NOTE | 2021-02-24 13:17 | P.PN ---
Subjective Progress Note Date: 02/24/21 Progress Note: 02/23/2021 HISTORY OF PRESENT ILLNESS: Mr. Mcintosh is a 51-year-old male one of my patient with a previous medical history significant for hypertension and hypertensive cardiovascular disease, diabetes mellitus type 2, for the last 3 years with diabetic polyneuropathy, coronary artery disease status post coronary artery bypass graft for 4 vessels back in 2016 with OSORIO to LAD, jump SVG graft to the diagonal branch and obtuse marginal branch and SVG graft to the RCA with ischemic cardiomyopathy status post intensity mentation, hyperlipidemia, severe PAD, status post left below- knee amputation, history of CVA with left-sided weakness that has resolved completely, degenerative disc disease of the cervical spine status post ACDF of C5 and C7. Patient presented to the emergency department at [facility] with left-sided chest pain associated with shortness breath that was started 2 days ago prior to the presentation, patient troponin was elevated, his total EKG showed left bundle branch block, BNP was slightly elevated, patient was admitted to the hospital non-ST elevation myocardial infarction he was started on heparin drip and nitroglycerin drip and the patient on the floor developed to have a significant chest pressure, so he was transported to [facility] orthodontic laboratory technician via EMS, with Dr. Mauro the patient over there and underwent left heart catheterization from the left arm that showed OSORIO to LAD: OSORIO to LAD is widely patent however there appears to be a 70% stenosis at the site of the anastamosis. Distal to the anastamosis there is a 70-80% tubular stenosis. Jump SVG to diagonal then to OM: The SVG to diagonal is widely patent however the SVG portion to the OM is occluded. The diagonal backfills the mid LAD and a modest septal branch. SVG to (assumed RCA or OM): There is a 2nd graft marker noted which is 100% occluded, he was recommended for the patient to go on aggressive medical therapy with aspirin 81 mg once every day, Plavix 75 mg every day, statin and revisit again if continue to have a significant angina despite aggressive medical management. 02/23: Patient is sitting up in bed in acute distress he continues to have in creased chest tightness and he will be going for left heart catherization in Am from the right wrist and FFR and possible PCI of the natii=ve LAD, he is a bit frustrated with his pain and current condition and he wanted to get out of the hospital as soon as he can, we will continue to monitor his BGM and kidney function and we will continue to follow with cardiology team 02/24: Patient is status post left heart catheterization that was done by Dr. Mauro with patent OSORIO to LAD with some 70% stenosis, and the jump SVG graft to the diagonal branch was opened but the one to the obtuse marginal branch was closed and closure of the SVG to RCA on 02/21 and patient is scheduled for PCI to the OSORIO/LAD today with IFR of the RCA as well. Dr. Mauro had recommended to continue maximum medical therapy. Patient has been afebrile, heart rate 85, blood pressure 108/57, pulse ox 97% on room air. Capillary blood glucose running between 154 and 265. Repeat blood work reveals hemoglobin 10.7, BUN 20 and creatinine 0.97. Blood sugars are running between 127 and 265. Echocardiogram revealed EF of 20-25%, [id number] mitral regurgitation, mild tricuspid regurgitation. Patient complains of midsternal chest pain and his rib cage hurting. He does have tenderness in the mid chest area. REVIEW OF SYSTEMS: Constitutional: No documented fever, no chills, no night sweats. No weight change. No weakness, fatigue or lethargy. No daytime sleepiness. HEENT: No headache. No blurred vision or double vision, no loss of vision. No loss of Hearing, denies dizziness. No nasal drainage or congestion. No epistaxis. No sore throat. Lungs: positive for shortness of breath, no cough, no sputum production. No wheezing. Reports dyspnea with activity. Cardiovascular: positive for chest pain, no lower extremity edema. No palpitations. No paroxysmal nocturnal dyspnea. No orthopnea. No lightheadedness or dizziness. No syncopal episodes. Abdominal: Reports abdominal pain. No nausea, vomiting. No diarrhea. No constipation. No bloody or tarry stools reports loss of appetite. Genitourinary: No dysuria, increased frequency, urgency. No urinary retention. Musculoskeletal: No myalgias. No muscle weakness, positive for gait dysfunction, no frequent falls. positive for back pain. No neck pain. Integumentary: No wounds, no lesions. No rash or pruritus. No unusual bruisin g. No change in hair or nails. Neurologic: No aphasia. No facial droop. No change in mentation. No head injury. No headache. No paralysis. No paresthesia. Psychiatric: No depression. No anxiety. No mood swings. Endocrine: No abnormal blood sugars. No weight change. PHYSICAL EXAMINATION: General: 51-year-old male laying down in bed in no apparent distress. HEENT: Head is atraumatic, normocephalic, pupils were equal round reactive to light and recommendation, extraocular muscle movement were intact, sclera nonicteric, conjunctivae were pale, mucous membranes of the mouth are somewhat dry. Neck: Supple, no JVP, decreased carotid upstroke bilaterally, no lymphadenopathy. Chest: Decreased breath sounds at the bases, few rhonchi, no expiratory wheezes, no chest wall tenderness, no intercostal retractions. Heart: First heart sound is normal, second heart sounds normal there is RAJWINDER 2/6 located at the left sternal border, AICD. Abdomen: Soft, nontender, nondistended, positive bowel sounds, no hepatosplenomegaly. Extremities: There is left below knee amputation stump, right lower extremity with decreased DP +1 and posterior tibialis could not be palpated. Neurologic examination: Patient is awake alert and oriented X3, cranial nerves II-12 appear grossly intact, muscle power were 5 out of 5 in upper extremities and 4 out of 5 in right lower extremity. ASSESSMENT AND PLAN: 1. Non-ST elevation [place] status post left heart catheterization that was done by Dr. Mauro with patent OSORIO to LAD with some 70% stenosis, and the jump SVG graft to the diagonal branch was opened but the one to the obtuse marginal branch was closed and closure of the SVG to RCA, he was recommended to continue maximum medical therapy with aspirin 81 mg every day, Plavix 75 mg once every day, continue with Atorvastatin 80 mg orally once every day, keep LDL closer 55-70 . Patient is scheduled for another [facility] with FFR for possible PCI of the LAD in the area where it has 70% stenosis. 2. Acute kidney injury due to decreased effective blood flow to the kidneys. Monitor the patient CMP in Am. 3. Ischemic cardiomyopathy. Hold the patient frusemide for now continue patient on Coreg 6.25 mg orally twice every day, patient could not tolerate lisinopril 2.5 mg once every day due to significant hypotension patient could not tolerate Farxiga due to prior history of necrotizing fasciitis as well as hypotension with hypoglycemia. 4. Diabetes mellitus type 2 insulin requiring. Continue Lantus 24 units at bedtime along with the sliding scale insulin. Patient was taken off Farxiga due to hypotension and severe hypoglycemia. 5. Severe PAD status post left below-knee amputation with current disease in the right lower extremity has been under the care of vascular surgery. Continue aspirin 81 mg once every day, Plavix 75 mg once every day, continue with Atorvastatin 80 mg orally once every day. 6. Diabetic polyneuropathy. Continue gabapentin 600 mg orally 3 times every day. 7. Chronic pain syndrome secondary to degenerative disc disease of the cervical spine and lumbar spine. Currently on Percocet 10/325 mg one tablet orally every 6 hours as needed. 8. Insomnia. Patient has been started on Restoril 15 mg orally once at bedtime as needed. 9. DVT prophylaxis. Restart the patient on heparin drip. 10. GI prophylaxis. Continue Protonix 40 mg once every day. 11. Left heart catherization Today Objective - Vital Signs Vital signs: Vital Signs Temp 97.8 F 02/24/21 00:00 Pulse 83 02/24/21 00:00 Resp 18 02/24/21 00:00 BP 137/69 02/24/21 00:00 Pulse Ox 97 02/24/21 00:00 Intake & Output 02/23/21 02/23/21 02/24/21 06:59 18:59 06:59 Intake Total 340 Output Total 1100 1700 Balance -1100 -1360 Weight 79.5 kg Intake: Oral 340 Output: Urine 1100 1700 Other: Voiding Method Toilet Toilet Toilet # Voids 1 - Labs CBC & Chem 7: 02/24/21 08:55 02/24/21 08:55 Labs: Abnormal Lab Results - Last 24 Hours (Table) 02/23/21 02/23/21 02/23/21 Range/Units 06:12 08:38 08:38 RBC 3.84 L (4.30-5.90) m/uL Hgb 11.4 L (13.0-17.5) gm/dL Hct 33.8 L (39.0-53.0) % Sodium 135 L (137-145) mmol/L Carbon Dioxide 21 L (22-30) mmol/L BUN 21 H (9-20) mg/dL Glucose 212 H (74-99) mg/dL POC Glucose (mg/dL) 100 H (75-99) mg/dL Total Bilirubin 1.5 H (0.2-1.3) mg/dL Albumin 3.3 L (3.5-5.0) g/dL 02/23/21 02/23/21 02/23/21 Range/Units 11:41 16:32 19:55 RBC (4.30-5.90) m/uL Hgb (13.0-17.5) gm/dL Hct (39.0-53.0) % Sodium (137-145) mmol/L Carbon Dioxide (22-30) mmol/L BUN (9-20) mg/dL Glucose (74-99) mg/dL POC Glucose (mg/dL) 154 H 207 H 265 H (75-99) mg/dL Total Bilirubin (0.2-1.3) mg/dL Albumin (3.5-5.0) g/dL
[2021-02-24] MEDS ORDERED: fentaNYL (PF) 50 MCG/ML 2 ML AMP ONE (16:01)
[2021-02-24] MEDS ORDERED: LIDOCAINE 1% INJ 10MG/ML (20 ML MDV) ONE (16:01)
[2021-02-24] MEDS ORDERED: HEPARIN SODIUM 1,000 UN/ML (10ML VL) ONE (16:01)
[2021-02-24] MEDS ORDERED: VERAPAMIL 2.5 MG/ML 2 ML AMP ONE (16:01)
[2021-02-24] MEDS: MIDAZOLAM 2 MG/2 ML VIAL IV ONE ×2 (16:32→17:26)
[2021-02-24] MEDS ORDERED: IV FLUID CONTINUATION 700 ML IV ONE (16:32)
[2021-02-24] MEDS: fentaNYL (PF) 50 MCG/ML 2 ML AMP IV ONE ×2 (16:32→16:41)
[2021-02-24] MEDS ORDERED: LIDOCAINE 1% INJ 10MG/ML (20 ML MDV) SQ ONE (16:33)
[2021-02-24] MEDS ORDERED: VERAPAMIL SYRINGE (5 MG/10 ML) INTRAARTER ONE (16:36)
[2021-02-24] MEDS: HEPARIN SODIUM 1,000 UN/ML (10ML VL) IV ONE ×5 (16:38→18:15)
[2021-02-24] MEDS: NITROGLYCERIN 1000MCG/10ML SYRINGE INTRACORON ONE ×3 (17:06→17:58)
[2021-02-24] MEDS ORDERED: IOPAMIDOL-370 125ML BTL INJ ONE (17:20)
[2021-02-24] MEDS ORDERED: IOPAMIDOL-370 100ML BTL INJ ONE (18:00)
[2021-02-24] MEDS ORDERED: ZOLPIDEM 5 MG TAB PO PRN (18:40)
[2021-02-24] MEDS ORDERED: ATROPINE SULFATE 0.1 MG/ML 10ML SYRINGE IV PRN (18:40)
[2021-02-24] MEDS ORDERED: RX INFO: IV CONTRAST WAS GIVEN 1 EACH MISC MISCELLANE PRN (18:40)
[2021-02-24] MEDS ORDERED: MAG HYDROX/AL HYDROX/SIMETH 30 ML CUP PO PRN (18:40)
[2021-02-24] MEDS ORDERED: NITROGLYCERIN SL TABS 0.4 MG TAB SUBLINGUAL PRN (18:40)
--- NOTE | 2021-02-24 18:40 | P.PRCINT ---
Percutaneous Coronary Int. - Percutaneous Coronary Intervention Percutaneous Coronary Intervention: PROCEDURES PERFORMED: Left heart catheterization, bilateral coronary angiography, iFR RCA, PCI proximal to mid RCA with overlapping 3.0 x 33 and 2.5 x 38 mm Xience CLARISSA, kissing balloon angioplasty of PLV and RCA with 2.0 x 12 and 2.5 x 12mm NC balloons respectively INDICATION: Non-STEMI HISTORY: Patient is a 51-year-old male with history of PAD status post peripheral intervention and amputation, diabetes mellitus type 2, hypertension, hyperlipidemia, ischemic cardiomyopathy ejection fraction 20%, coronary artery disease status post CABG with only remaining vessels OSORIO to LAD and SVG to diagonal branch who has had chronic angina with fairly minimal exertion and started having chest pain and found to have non-STEMI and therefore transferred from [facility] to [facility]. Patient had diagnostic heart catheterization performed which showed only patent grafts OSORIO to LAD as well as a SVG to diagonal branch as well as diffuse disease of the RCA with right to left collaterals and OSORIO to LAD with a 70% stenosis at the anastomosis as well as diffuse 85% stenosis distal to the anastomosis. Left coronary angiography was somewhat difficult and felt elated to severe ostial stenosis with inability to selectively engage with a 5-Lebanese catheter. Due to contrast threshold staged intervention was recommended. CONSENT:I have discussed the risks, benefits and alternative therapies for the above-mentioned procedure and for both sedation/analgesia as well as necessary blood product administration, if indicated, as they pertain to this patient. The patient has indicated understanding and acceptance of the risks and procedures discussed. PROCEDURE: After the risks, benefits and alternatives of the above mentioned procedure explained in detail with the patient, informed consent was obtained. Patient was taken to the catheterization lab and prepped and draped in usual fashion. 1% lidocaine was used to anesthetize the left radial artery. A 6- Lebanese sheath was placed in the left radial artery using modified Seldinger technique. Subselective left coronary angiography was performed with a 5-Lebanese JL 3.5 catheter. The decision was made to perform iFR of the RCA. A 6-Lebanese AL 0.75 guide disease engage the RCA. Heparin was given for ACT > 250. There was dampening noted with engagement. A 0.014 pressure wire was advanced in normalize. It was passed into the mid to distal RCA just past the PLV branch and iFR was performed and was abnormal at 0.58. Therefore the decision was made to stent the proximal to mid RCA which did supply collaterals. A 0.014 MW wire was advanced as distal RCA. Predilation was performed with a 2.25 x 12 mm noncompliant balloon. A 2.5 x 38 mm and a 3.0 x 33 mm Xience CLARISSA were placed overlapping from the mid back to the ostial RCA. The stents were postdilated from ostial to mid stents with a 3.25 x 12 mm noncompliant balloon. There was more distal diffuse disease however felt best treated medically as the majority of the abnormal iFR appeared diffusely throughout the proximal to mid RCA. There was pinching of the jailed PLV and patient also describes some jaw pain consistent with his angina at this time and therefore decision was made to perform kissing balloon angioplasty. A 0.014 BMW wire was then advanced into the PLV and initial angioplasty was performed with a 1.5 balloon. Next kissing balloon angioplasty was performed with a 2.0 x 12 mm noncompliant balloon in the LV and a 2.5 x 12 mm noncompliant balloon in the RCA. Pre-intervention there is diffuse 50-60% stenosis throughout the entire proximal to mid RCA and postintervention there was less than 10% stenosis of the RCA and residual 20% stenosis of the ostial PLV. There was diffuse more distal 50 up to 70% stenosis of the PLV and PDA however felt best treated medically. There was no dissection. Initial plan was to consider performing OSORIO to LAD iFR however given contrast threshold decision was made to finish the procedure and consider staged intervention of the OSORIO to LAD. The left radial sheath was removed and a TR band was placed with hemostasis achieved. The patient tolerated the procedure well. Patient was transported back to the post catheterization holding area in stable condition. Conscious Sedation: Patient was monitored under the direct supervision of vision of myself for conscious sedation using Versed and fentanyl for a total duration of 93 minutes HEMODYNAMICS: Ao: 127/67 SELECTIVE CORONARY ARTERIOGRAPHY: RIGHT CORONARY ARTERY: The right coronary artery is a large caliber vessel which gives off a PDA and PLV branch and is the dominant vessel. There is diffuse 50- 60% heavily calcified proximal to mid RCA stenosis (iFR 0.58). The PLV has a proximal takeoff and has diffuse proximal 40-70% stenosis. The PDA is small caliber and has mild disease. FINAL IMPRESSION: 1. Succssful PCI proximal to mid RCA with overlapping 3.0 x 33 and 2.5 x 38 mm Xience CLARISSA, kissing balloon angioplasty of PLV and RCA with 2.0 x 12 and 2.5 x 12mm NC balloons respectively PLAN: 1. Aggressive risk factor modification per most recent ACC/AHA guidelines. 2. Continue dual antiplatelets for 12 months. 3. Staged PCI of OSORIO to LAD. May also consider PCI of PLV branch as it appears approximately 2.25mm vessel however would first treat medically.
[2021-02-24] MEDS ORDERED: SODIUM CHLORIDE 0.9% 1,000 ML IV SCH (18:45)
[2021-02-24 19:40] LABS: Glucose,Whole Blood 178 mg/dL (75-99)
[2021-02-24] MEDS: INSULIN DETEMIR (LEVEMIR) 100 UNIT/ML SYR SQ SCH (21:03)
[2021-02-25 06:01] LABS: Glucose,Whole Blood 140 mg/dL (75-99)
[2021-02-25] MEDS: INSULIN ASPART (NovoLOG) 100 UNIT/ML VIAL SQ SCH (06:36)
[2021-02-25] MEDS: PANTOPRAZOLE 40 MG TABLET PO SCH (06:37)
[2021-02-25] MEDS: carvediloL 6.25 MG TAB PO SCH (06:38)
[2021-02-25 08:03] LABS: African American GFR (CKD) >90 (>60 ml/min/1.73 sqM); Non-African American GFR(CKD) 87 (>60 ml/min/1.73 sqM)
--- NOTE | 2021-02-25 08:38 | P.DS ---
Providers Date of admission: 02/21/21 18:54 Expected date of discharge: 02/25/21 Attending physician: Jesus Gustafson Consults: 02/21/21 22:13 Consult Physician Routine Consulting Provider: Jos Mauro Consult Reason/Comments: re: NSTEMI Do you want consulting provider notified?: Already Contacted 02/24/21 18:40 Consult Physician Routine Consulting Provider: [facility] Consult Reason/Comments: Post Interventional patient Do you want consulting provider notified?: Already Contacted Primary care physician: Stated None Hospital Course: HISTORY OF PRESENT ILLNESS: Mr. Mcintosh is a 51-year-old male one of my patient with a previous medical history significant for hypertension and hypertensive cardiovascular disease, diabetes mellitus type 2, for the last 3 years with diabetic polyneuropathy, coronary artery disease status post coronary artery bypass graft for 4 vessels back in 2016 with OSORIO to LAD, jump SVG graft to the diagonal branch and obtuse marginal branch and SVG graft to the RCA with ischemic cardiomyopathy status post intensity mentation, hyperlipidemia, severe PAD, status post left below- knee amputation, history of CVA with left-sided weakness that has resolved completely, degenerative disc disease of the cervical spine status post ACDF of C5 and C7. Patient presented to the emergency department at [facility] with left-sided chest pain associated with shortness breath that was started 2 days ago prior to the presentation, patient troponin was elevated, his total EKG showed left bundle branch block, BNP was slightly elevated, patient was admitted to the hospital non-ST elevation myocardial infarction he was started on heparin drip and nitroglycerin drip and the patient on the floor d eveloped to have a significant chest pressure, so he was transported to [facility] director of cath lab via EMS, with Dr. Mauro the patient over there and underwent left heart catheterization from the left arm that showed OSORIO to LAD: OSORIO to LAD is widely patent however there appears to be a 70% stenosis at the site of the anastamosis. Distal to the anastamosis there is a 70-80% tubular stenosis. Jump SVG to diagonal then to OM: The SVG to diagonal is widely patent however the SVG portion to the OM is occluded. The diagonal backfills the mid LAD and a modest septal branch. SVG to (assumed RCA or OM): There is a 2nd graft marker noted which is 100% occluded, he was recommended for the patient to go on aggressive medical therapy with aspirin 81 mg once every day, Plavix 75 mg every day, statin and revisit again if continue to have a significant angina despite aggressive medical management. 02/23: Patient is sitting up in bed in acute distress he continues to have increased chest tightness and he will be going for left heart catherization in Am from the right wrist and FFR and possible PCI of the natii=ve LAD, he is a bit frustrated with his pain and current condition and he wanted to get out of the hospital as soon as he can, we will continue to monitor his BGM and kidney function and we will continue to follow with cardiology team 02/24: Patient is status post left heart catheterization that was done by Dr. Mauro with patent OSORIO to LAD with some 70% stenosis, and the jump SVG graft to the diagonal branch was opened but the one to the obtuse marginal branch was closed and closure of the SVG to RCA on 02/21 and patient is scheduled for PCI to the OSORIO/LAD today with IFR of the RCA as well. Dr. Mauro had recommended to continue maximum medical therapy. Patient has been afebrile, heart rate 85, blood pressure 108/57, pulse ox 97% on room air. Capillary blood glucose running between 154 and 265. Repeat blood work reveals hemoglobin 10.7, BUN 20 and creatinine 0.97. Blood sugars are running between 127 and 265. Echocardiogram revealed EF of 20-25%, adwf-ue-thirwzow mitral regurgitation, mild tricuspid regurgitation. Patient complains of midsternal chest pain and his rib cage hurting. He does have tenderness in the mid chest area. 02/25: 02/24 patient underwent successful PCI of the proximal to mid RCA with overlapping stent, kissing balloon angioplasty of PLV and RCA. Dr. Mauro may consider PCI of PLV branch and appears to be 2.25 mm vessel however would first treat medically. Patient is currently on aspirin 81 mg, Lipitor, Coreg, Plavix. Patient has been afebrile, heart rate 72, blood pressure 121/69, pulse ox 97% on room air. Patient denies having any chest pain. He is very anxious to be discharged. Medication reconciliation has been completed and patient will be discharged once cleared by cardiology. ASSESSMENT AND PLAN: 1. Non-ST elevation HI status post left heart catheterization that was done by Dr. Mauro with patent OSORIO to LAD with some 70% stenosis, and the jump SVG graft to the diagonal branch was opened but the one to the obtuse marginal branch was closed and closure of the SVG to RCA on 02/21 and on 02/24 patient underwent successful PCI of the proximal to mid RCA with overlapping stent, kissing balloon angioplasty of PLV and RCA. 2. Acute kidney injury due to decreased effective blood flow to the kidneys. 3. Ischemic cardiomyopathy. 4. Diabetes mellitus type 2 insulin requiring. 5. Severe PAD status post left below-knee amputation with current disease in the right lower extremity has been under the care of vascular surgery. 6. Diabetic polyneuropathy. 7. Chronic pain syndrome secondary to degenerative disc disease of the cervical spine and lumbar spine. 8. Insomnia. DISCHARGE PLAN Home Impression and plan of care have been directed as dictated by the signing physician. Aniyah Baldwin nurse practitioner acting as scribe for signing physician. Patient Condition at Discharge: Good Plan - Discharge Summary Discharge Rx Participant: No New Discharge Prescriptions: New carvediloL [Coreg] 6.25 mg PO BID-W/MEALS #60 tab Aspirin 81 mg PO DAILY tab Atorvastatin Calcium [Lipitor] 80 mg PO HS #30 tablet Continue metFORMIN HCL [Glucophage] 1,000 mg PO W/SUPPER Clopidogrel [Plavix] 75 mg PO DAILY oxyCODONE HCL/ACETAMINOPHEN [Percocet 10-325 mg] 1 tab PO Q6HR PRN PRN Reason: Pain Insulin Glargine,Hum.rec.anlog [Lantus Solostar Pen] 24 unit SQ HS Changed Gabapentin [Neurontin] 600 mg PO TID #0 Discontinued lisinopriL [Zestril] 2.5 mg PO DAILY carvediloL [Coreg] 3.125 mg PO BID-W/MEALS Discharge Medication List Clopidogrel [Plavix] 75 mg PO DAILY 08/14/20 [History] metFORMIN HCL [Glucophage] 1,000 mg PO W/SUPPER 08/14/20 [History] Insulin Glargine,Hum.rec.anlog [Lantus Solostar Pen] 24 unit SQ HS 02/21/21 [History] oxyCODONE HCL/ACETAMINOPHEN [Percocet 10-325 mg] 1 tab PO Q6HR PRN 02/21/21 [History] Aspirin 81 mg PO DAILY tab 02/25/21 [Rx] Atorvastatin Calcium [Lipitor] 80 mg PO HS #30 tablet 02/25/21 [Rx] Gabapentin [Neurontin] 600 mg PO TID #0 02/25/21 [Rx] carvediloL [Coreg] 6.25 mg PO BID-W/MEALS #60 tab 02/25/21 [Rx] Follow up Appointment(s)/Referral(s): Jesus Gustafson MD [STAFF PHYSICIAN] - 1 Week Jos Mauro DO [STAFF PHYSICIAN] - 1 Week (Spoke to Sigrid. Office will call with appointment time.) Patient Instructions/Handouts: *[facility] - After Heart Catheterization - [facility] Host/Hostess Instructions Discharge Disposition: HOME SELF-CARE
[2021-02-25] MEDS: ENOXAPARIN 40 MG/0.4 ML SYRINGE SQ SCH (08:39)
[2021-02-25] MEDS: GABAPENTIN 300 MG CAP PO SCH (08:39)
[2021-02-25] MEDS: ASPIRIN 81 MG PO SCH (08:39)
[2021-02-25] MEDS: CLOPIDOGREL 75 MG TAB PO SCH (08:39)
[2021-02-25 09:20] VITALS: BP 120/60; PULSE 64; RESP 18; TEMP 98
--- NOTE | 2021-02-25 12:31 | P.PN ---
Subjective HISTORY OF PRESENTING ILLNESS This is a pleasant 51-year-old male with a history of hypertension, coronary artery disease status post CABG in 2016 with 4 bypass, ischemic cardiomyopathy status post AICD, hyperlipidemia, PVD with recent peripheral stenting, diabetes with polyneuropathy, status post amputation. Patient presents with chest pressure which has been going on off and on for last 2 days as well as some associated shortness breath. Patient was found to have non-STEMI at [facility] with initial troponin 2.3. Patient did have ongoing chest pain and therefore he was transferred over to [facility] for heart kalani terization. He has had recent workup for nonhealing ulcers and underwent amputations. He denies any recent fevers, chills, cough. He has been on aspirin and Plavix at home however did not take Plavix yet today is he normally takes it at night. 02/25/2021 Pt seen and examined sitting up in bed in no acute distress. He denies chest pain, shortness of breath, dizziness or palpitations. He underwent successful PCI of the proximal-mid RCA with overlapping kissing balloon angioplasty of the PLV and RCA. PHYSICAL EXAMINATION CONSTITUTIONAL: No apparent distress. HEENT: Head is normocephalic. Pupils are equal, round. Sclerae anicteric. Mucous membranes of the mouth are moist. No JVD. No carotid bruit. CHEST EXAMINATION: Lungs are clear to auscultation. No chest wall tenderness is noted on palpation or with deep breathing. HEART EXAMINATION: Regular rate and rhythm. S1, S2 heard. No murmurs, gallops or rub. EXTREMITIES: Left BKA; no swelling in the right lower extremity. ASSESSMENT 1. Non-STEMI 2. Ischemic cardio myopathy status post AICD 3. PAD status post peripheral stenting 4. Nonhealing ulcers, status post amputation 5. Diabetes mellitus 6. Hypertension 7. Hyperlipidemia 8. CAD s/p CABG PLAN Stable for discharge from a cardiac perspective. Follow up with Dr. Mauro in 1-week. Nurse Practitioner note has been reviewed, I agree with a documented findings and plan of care. Patient was seen and examined. Objective - Vital Signs Vital signs: Vital Signs Temp 98.0 F 02/25/21 08:00 Pulse 64 02/25/21 08:00 Resp 18 02/25/21 08:00 BP 120/60 02/25/21 08:00 Pulse Ox 96 02/25/21 08:00 Intake & Output 02/24/21 02/25/21 02/25/21 18:59 06:59 18:59 Intake Total 450 360 240 Output Total 950 1500 Balance -500 -1140 240 Weight 91 kg Intake: IV 450 Oral 360 240 Output: Urine 950 1500 Other: Voiding Method Toilet # Voids 1 2 - Labs CBC & Chem 7: 02/24/21 08:55 02/25/21 07:30 Labs: Abnormal Lab Results - Last 24 Hours (Table) 02/24/21 02/25/21 Range/Units 19:39 06:00 POC Glucose (mg/dL) 178 H 140 H (75-99) mg/dL
== END 2021-02-25 09:34 | disposition home or self-care (01) | DRG 247 ==
LOC: 3SCARD 18:54
PROVIDERS: ADMIT Internal Medicine; ATTEND Internal Medicine
PROC: 027035Z Dilation of Coronary Artery, One Artery with Two Drug-eluting Intraluminal Devices, Percutaneous Approach (ICD-10-PCS; principal; 2021-02-24 15:00)
PROC: 4A023N7 Measurement of Cardiac Sampling and Pressure, Left Heart, Percutaneous Approach (ICD-10-PCS; 2021-02-24 15:00)
PROC: B2151ZZ Fluoroscopy of Left Heart using Low Osmolar Contrast (ICD-10-PCS; 2021-02-24 15:00)
PROC: B2111ZZ Fluoroscopy of Multiple Coronary Arteries using Low Osmolar Contrast (ICD-10-PCS; 2021-02-24 15:00)
DX: I21.4 Non-ST elevation (NSTEMI) myocardial infarction (principal); N17.9 Acute kidney failure, unspecified; I69.354 Hemiplegia and hemiparesis following cerebral infarction affecting left non-dominant side; I25.10 Atherosclerotic heart disease of native coronary artery without angina pectoris; I25.2 Old myocardial infarction; I25.5 Ischemic cardiomyopathy; E78.5 Hyperlipidemia, unspecified; E11.649 Type 2 diabetes mellitus with hypoglycemia without coma; E11.42 Type 2 diabetes mellitus with diabetic polyneuropathy; E11.51 Type 2 diabetes mellitus with diabetic peripheral angiopathy without gangrene; F17.200 Nicotine dependence, unspecified, uncomplicated; G47.00 Insomnia, unspecified; G89.4 Chronic pain syndrome; I11.0 Hypertensive heart disease with heart failure; I50.9 Heart failure, unspecified; J44.9 Chronic obstructive pulmonary disease, unspecified; Z79.02 Long term (current) use of antithrombotics/antiplatelets; Z79.4 Long term (current) use of insulin; Z79.82 Long term (current) use of aspirin; Z79.899 Other long term (current) drug therapy; Z87.39 Personal history of other diseases of the musculoskeletal system and connective tissue; Z89.512 Acquired absence of left leg below knee; Z95.1 Presence of aortocoronary bypass graft; Z95.810 Presence of automatic (implantable) cardiac defibrillator; M50.30 Other cervical disc degeneration, unspecified cervical region
CPT/HCPCS: 80053; 82565; 83735; 85025; 92921; 93306; 93454; 93459; 93571

== ENCOUNTER 2021-03-24 06:04 | Day surgery (SDC) | payer OTHER ==
[~2021-03-24 06:04] MED LIST: ALPRAZolam 0.25 MG TAB PO PRN; ALPRAZolam 0.5 MG TAB PO PRN; ASPIRIN 325 MG TAB PO STA; ATORVASTATIN 80 MG TAB PO STA; HEPARIN SODIUM,PORCINE 10,000 UNIT in SODIUM CHLORIDE 0.9% 1,000 ML IRRIGATION PRN; HEPARIN SODIUM,PORCINE 2,500 UNIT in SODIUM CHLORIDE 0.9% 250 ML IRRIGATION PRN; NITROGLYCERIN SL TABS 0.4 MG TAB SUBLINGUAL PRN; SODIUM CHLORIDE 0.9% 1,000 ML in EMPTY BAG 1 BAG IV SCH
[2021-03-24 07:17] VITALS: TEMP 98.2
[2021-03-24] MEDS ORDERED: VERAPAMIL 2.5 MG/ML 2 ML AMP ONE (07:36)
[2021-03-24] MEDS ORDERED: HEPARIN SODIUM 1,000 UN/ML (10ML VL) ONE (07:36)
[2021-03-24] MEDS ORDERED: LIDOCAINE 1% INJ 10MG/ML (20 ML MDV) ONE (07:36)
[2021-03-24] MEDS ORDERED: fentaNYL (PF) 50 MCG/ML 2 ML AMP ONE (07:36)
[2021-03-24] MEDS ORDERED: LIDOCAINE 1% INJ 10MG/ML (20 ML MDV) SQ ONE (07:40)
[2021-03-24] MEDS ORDERED: fentaNYL (PF) 50 MCG/ML 2 ML AMP IV ONE ×2 (07:40→08:27)
[2021-03-24] MEDS ORDERED: MIDAZOLAM 2 MG/2 ML VIAL IV ONE ×2 (07:40→07:57)
[2021-03-24] MEDS ORDERED: VERAPAMIL SYRINGE (5 MG/10 ML) INTRAARTER ONE (07:42)
[2021-03-24] MEDS ORDERED: IOPAMIDOL-370 125ML BTL INJ ONE ×2 (08:12→08:37)
[2021-03-24] MEDS ORDERED: CLOPIDOGREL 75 MG TAB ONE (08:36)
[2021-03-24] MEDS ORDERED: CLOPIDOGREL 75 MG TAB PO ONE (08:37)
[2021-03-24] MEDS ORDERED: NITROGLYCERIN SL TABS 0.4 MG TAB SUBLINGUAL PRN (08:52)
[2021-03-24] MEDS ORDERED: RX INFO: IV CONTRAST WAS GIVEN 1 EACH MISC MISCELLANE PRN (08:52)
[2021-03-24] MEDS ORDERED: ATROPINE SULFATE 0.1 MG/ML 10ML SYRINGE IV PRN (08:52)
[2021-03-24] MEDS ORDERED: ZOLPIDEM 5 MG TAB PO PRN (08:52)
[2021-03-24] MEDS ORDERED: MAG HYDROX/AL HYDROX/SIMETH 30 ML CUP PO PRN (08:52)
--- NOTE | 2021-03-24 08:52 | P.PRCINT ---
Percutaneous Coronary Int. - Percutaneous Coronary Intervention Percutaneous Coronary Intervention: PROCEDURES PERFORMED: OSORIO to LAD angiography, PCI OSORIO to LAD with overlapping 2.25 x 12, 2.5 x 23, 2.5 x 38 Xience CLARISSA, iFR OSORIO to LAD INDICATION: Unstable angina, ischemic cardiomyopathy, staged PCI HISTORY: Patient is a 51-year-old male with history of PAD status post peripheral intervention and amputation, diabetes mellitus type 2, hypertension, hyperlipidemia, ischemic cardiomyopathy ejection fraction 20%, coronary artery disease status post CABG with only remaining vessels OSORIO to LAD and SVG to diagonal branch who has had angina with fairly minimal exertion and started having chest pain and found to have non-STEMI and therefore transferred from [facility] to [facility] previous hospitalization. Patient had diagnostic heart catheterization performed which showed only patent grafts OSORIO to LAD as well as a SVG to diagonal branch as well as diffuse disease of the RCA with right to left collaterals and OSORIO to LAD with a 70-80% stenosis at the anastomosis as well as diffuse 85% stenosis distal to the anastomosis. Left coronary angiography was somewhat difficult and felt related to severe ostial stenosis with inability to selectively engage with a 5-Latvian catheter. Patient underwent staged PCI of RCA 02/24/21 and recommended to have further evaluation of OSORIO to LAD disease with likely PCI. CONSENT:I have discussed the risks, benefits and alternative therapies for the above-mentioned procedure and for both sedation/analgesia as well as necessary blood product administration, if indicated, as they pertain to this patient. The patient has indicated understanding and acceptance of the risks and procedures discussed. PROCEDURE: After the risks, benefits and alternatives of the above mentioned procedure explained in detail with the patient, informed consent was obtained. Patient was taken to the catheterization lab and prepped and draped in usual fashion. 1% lidocaine was used to anesthetize the left radial artery. A 6- Latvian sheath was placed in the left radial artery using modified Seldinger technique. Heparin was given for ACT greater than 250. A 6-Latvian IM guide was used engage the OSORIO. Next a 0.014 PressureWire was inserted and normalized. It was advanced distal to the diffuse LAD disease and iFR was performed and abnormal at 0.35. Next balloon angioplasty was performed with a 2.0 x 12 mm balloon. Overlapping 2.25 x 38 and 2.25 x 23 mm Xience CLARISSA were placed. This did not cover the anastomosis and therefore an additional 2.25 x 12 mm Xience CLARISSA was placed. Preintervention there was diffuse 85% stenosis with MERARY 2-3 flow and postintervention there is less than 10% stenosis with MERARY 3 flow and no dissection. There was more distal 30% stenosis however felt best treated medically. The wire was removed and final angiograms were performed. The left radial sheath was removed and a TR band was placed with hemostasis achieved. The patient tolerated the procedure well. Patient was transported back to the post catheterization holding area in stable condition. Conscious Sedation: Patient was monitored under the direct supervision of vision of myself for conscious sedation using Versed and fentanyl for a total duration of 59 minutes HEMODYNAMICS: Aorta: 132/78 SELECTIVE ARTERIOGRAPHY: OSORIO to LAD: There is a 70-80% OSORIO to LAD anastomosis stenosis. There is a diffuse long 70-85% stenosis after the anastomosis. FINAL IMPRESSION: 1. Successful PCI OSORIO to LAD with overlapping 2.25 x 12, 2.5 x 23, 2.5 x 38 Xience CLARISSA PLAN: 1. Aggressive risk factor modification per most recent ACC/AHA guidelines. 2. Follow-up in the office in 1-2 weeks.
[2021-03-24] MEDS ORDERED: SODIUM CHLORIDE 0.9% 1,000 ML IV SCH (09:00)
[2021-03-24] MEDS ORDERED: oxyCODONE-APAP 10-325MG 1 EACH TAB PO STA (09:10)
[2021-03-24 10:43] VITALS: BP 102/55; PULSE 74; RESP 14
[2021-03-25] MEDS ORDERED: CLOPIDOGREL 75 MG TAB PO SCH (09:00)
[2021-03-25] MEDS ORDERED: ASPIRIN 81 MG PO SCH (09:00)
== END 2021-03-24 12:30 | disposition home or self-care (01) ==
LOC: CATHCVL 06:04
PROVIDERS: ATTEND Internal Medicine
DX: I25.720 Atherosclerosis of autologous artery coronary artery bypass graft(s) with unstable angina pectoris (principal); I10 Essential (primary) hypertension; I25.5 Ischemic cardiomyopathy; Z20.822 Contact with and (suspected) exposure to COVID-19; E78.5 Hyperlipidemia, unspecified; I73.9 Peripheral vascular disease, unspecified; Z95.820 Peripheral vascular angioplasty status with implants and grafts; E11.42 Type 2 diabetes mellitus with diabetic polyneuropathy; Z95.810 Presence of automatic (implantable) cardiac defibrillator; Z89.612 Acquired absence of left leg above knee; I25.2 Old myocardial infarction; Z82.49 Family history of ischemic heart disease and other diseases of the circulatory system; Z79.02 Long term (current) use of antithrombotics/antiplatelets; Z79.82 Long term (current) use of aspirin; Z79.4 Long term (current) use of insulin; Z79.899 Other long term (current) drug therapy
CPT/HCPCS: 93571; 87635; C9604; C1887; C1894; C1725; C1769; C1874 ×3; J2250; J2001; J3010; J1644; Q9967